=== PATIENT | female | born 1935 | race Hispanic/Latino ===

== ENCOUNTER 2018-06-07 18:09 | Emergency (ER) | payer OTHER ==
--- OUTSIDE RECORDS SUMMARY | 2018-06-07 18:10 | XMS REPORT ---
:1935 Author Organization eClinicalWorks Care Team Providers Name Role Phone Konstantin [facility] Provider Role Unavailable Allergies, Adverse Reactions, Alerts Substance Reaction Event Type Lisinopril/Hctz Info Not Available Drug Allergy Cozaar Info Not Available Drug Allergy Problems Problem Type Condition Code Onset Dates Condition Status Assessment Depression with anxiety F41.8 Active Assessment Hypertension I10 Active Assessment Hyperlipidemia E78.5 Active Assessment Gastro-esophageal reflux disease K21.9 Active without esophagitis Problem Hypertension I10 Active Problem Obesity E66.9 Active Problem Hyperlipidemia E78.5 Active Problem Gastro-esophageal reflux disease K21.9 Active without esophagitis Problem Hyperglycemia R73.9 Active Problem Depression with anxiety F41.8 Active Medications Medication Code System Code Instructions Start Date End Date Status Dosage Aspir-81 [facility] 50049712211 81 MG Orally Once Active 1 tablet a day Bystolic [facility] 05294696588 5 MG Orally Once Active 1 tablet a day Lipitor [facility] 30074343130 10 MG Orally Once Active 1 tablet a day Results No Known Results Summary Purpose eClinicalWorks Submission
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
[2018-06-07 20:05] VITALS: BP 164/75; TEMP 97.8; O2SAT 96
== END 2018-06-07 19:58 | disposition home or self-care (01) ==
LOC: ER 18:09
DX: M25.562 Pain in left knee (principal); I10 Essential (primary) hypertension; V43.52XA Car driver injured in collision with other type car in traffic accident, initial encounter
CPT/HCPCS: 70450; 72125; 99284

== ENCOUNTER 2018-07-18 18:49 | Emergency (ER) | payer OTHER ==
--- OUTSIDE RECORDS SUMMARY | 2018-07-18 18:51 | XMS REPORT ---
:1935 Author Organization eClinicalWorks Care Team Providers Name Role Phone Konstantin [facility] Provider Role Unavailable Allergies, Adverse Reactions, Alerts [...] Start Date End Date Status Dosage Aspir-[address] [facility] [id number] 81 MG Orally Once Active 1 tablet a day Bystolic [facility] 49728401542 5 MG Orally Once Active 1 tablet a day Lipitor [facility] 25314125371 10 MG Orally Once Active 1 tablet a day Results No Known Results Summary Purpose eClinicalWorks Submission
[2018-07-18] MEDS ORDERED: ONDANSETRON 4 MG/2 ML VIAL ONE (20:00)
[2018-07-18] MEDS ORDERED: MORPHINE 4 MG/ML SYR ONE (20:00)
[2018-07-18 20:14] LABS: Absolute Lymphocytes (CBC) 1.6 K/uL (0.7-4.9); Absolute Monocytes 0.8 K/uL (0.1-1.3); Absolute Neutrophil 11.1 K/uL (1.8-8.0); Basophils % 0.3 % (0-1.3); Eosinophils % 0.6 % (0-4.4); Lymphocytes % 11.7 % (15.3-44.8); MPV 10.2 fL (7.6-11.3); Monocytes % 5.8 % (3.3-12.3); RBC Red Blood Cell Count 4.81 M/uL (3.86-4.86)
[2018-07-18 20:29] LABS: Albumin 3.9 g/dL (3.4-5.0); Bilirubin Direct 0.1 mg/dL (0-0.2); Bilirubin Total 0.3 mg/dL (0.2-1.0); Protein, Total 7.7 g/dL (6.4-8.2)
[2018-07-18 20:33] LABS: Urine Bacteria <20 /HPF (<20); Urine Culture Reflex Order REFLEXED; Urine RBC <5 /HPF (NONE SEEN)
[2018-07-18 20:47] LABS: Urine Blood 3+ (NEG); Urine Glucose NEGATIVE (NEG); Urine Protein 1+ (NEG); Urine Specific Gravity 1.025 (1.005-1.030)
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
--- NOTE | 2018-07-18 21:34 | ER ---
Nurse's Notes [facility] Name: Tiffany Zambrano Age: 83 yrs Sex: Female : 1935 Arrival Date: 07/18/2018 Time: 18:50 Bed 15 Private MD: Richar Pryor Diagnosis: Right ureteral calculous with right hydroneprosis Presentation: 07/18 19:15 Presenting complaint: Patient states: right lower abd pain since 1600. Transition of ak1 care: patient was not received from another setting of care. Onset of symptoms was July 18, 2018. Risk Assessment: Do you want to hurt yourself or someone else? Patient reports no desire to harm self or others. Initial Sepsis Screen: Does the patient meet any 2 criteria? No. Patient's initial sepsis screen is negative. Does the patient have a suspected source of infection? No. Patient's initial sepsis screen is negative. Care prior to arrival: None. 19:15 Method Of Arrival: Ambulatory ak1 19:15 Acuity: YESENIA 3 ak1 Triage Assessment: 19:16 General: Appears uncomfortable, Behavior is crying. ak1 Historical: - Allergies: 19:16 No Known Allergies; ak1 - Home Meds: 19:16 Unable to obtain [Active]; ak1 - PMHx: 19:16 Hyperlipidemia; Hypertension; ak1 - PSHx: 19:16 ; ak1 - Immunization history:: Adult Immunizations unknown. - Social history:: Smoking status: unknown. - Ebola Screening: : No symptoms or risks identified at this time. Screenin:00 Abuse screen: Denies threats or abuse. Denies injuries from another. Nutritional rr5 screening: No deficits noted. Tuberculosis screening: No symptoms or risk factors identified. Fall Risk IV access (20 points). Total Marte Fall Scale indicates No Risk (0-24 pts). Assessment: 19:30 General: Appears in no apparent distress. uncomfortable, Behavior is calm, cooperative, rr5 appropriate for age. Pain: Complains of pain in right lower quadrant Pain does not radiate. Pain currently is 10 out of 10 on a pain scale. Quality of pain is described as aching, Pain began gradually, Is intermittent. 19:30 Neuro: Level of Consciousness is awake, alert, obeys commands, Oriented to person, rr5 place, time, situation. Cardiovascular: Capillary refill < 3 seconds Patient's skin is warm and dry. Respiratory: Airway is patent Respiratory effort is even, unlabored, Respiratory pattern is regular, symmetrical. GI: Abdomen is round Reports lower abdominal pain, nausea, vomiting. : Reports urinary frequency. EENT: No signs and/or symptoms were reported regarding the EENT system. Derm: Skin is intact, Skin temperature is warm. Musculoskeletal: No signs and/or symptoms reported regarding the musculoskeletal system. 20:30 Reassessment: Patient appears in no apparent distress at this time. Patient and/or rr5 family updated on plan of care and expected duration. Pain level reassessed. Patient denies pain at this time. Patient states feeling better. Patient states symptoms have improved. 21:30 Reassessment: Patient appears in no apparent distress at this time. Patient and/or rr5 family updated on plan of care and expected duration. Pain level reassessed. Patient states feeling better. Patient states symptoms have improved. 22:28 Reassessment: Patient appears in no apparent distress at this time. Patient and/or rr5 family updated on plan of care and expected duration. Pain level reassessed. no complaints of pain. 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 Patient states symptoms have improved. 23:00 Reassessment: Patient appears in no apparent distress at this time. Patient and/or rr5 family updated on plan of care and expected duration. Pain level reassessed. discharge instruction and prescription explained without complaints made. Patient states feeling better. Patient states symptoms have improved. Vital Signs: 19:13 BP 167 / 86; Pulse 73; Resp 20; Temp 98.8; Pulse Ox 96% on R/A; Weight 81.65 kg (R); ak1 Height 5 ft. 2 in. (157.48 cm) (R); Pain 9/10; 20:30 BP 153 / 63; Pulse 70; Resp 19; Pulse Ox 99% on R/A; rr5 21:30 BP 160 / 70; Pulse 71; Resp 18; Pulse Ox 99% ; rr5 22:27 BP 162 / 73; Pulse 79; Resp 18; Pulse Ox 99% ; rr5 22:54 BP 151 / 62; Pulse 66; Resp 17; Pulse Ox 99% ; rr5 19:13 Body Mass Index 32.92 (81.65 kg, 157.48 cm) ak1 ED Course: 18:50 Patient arrived in ED. rg4 18:51 Herbert Pryor MD is Private Physician. rg4 18:51 Richar Pryor DO is Private Physician. rg4 19:13 Arm band placed on Patient placed in an exam room, on a stretcher, Patient notified of ak1 wait time. 19:16 Triage completed. ak1 19:22 Ethan Mendez, LETY is PHCP. pm1 19:23 Pepe Schulz MD is Attending Physician. pm1 19:39 Brent Gould RN is Primary Nurse. rr5 19:40 Inserted saline lock: 20 gauge in right forearm, using aseptic technique. Blood rr5 collected. 19:42 Radiology exam delayed due to lab results not completed at this time. (BUN/Creatinine). vm2 20:00 Patient has correct armband on for positive identification. Placed in gown. Bed in low rr5 position. Call light in reach. Side rails up X2. 20:00 Pulse ox on. NIBP on. rr5 20:13 Radiology exam delayed due to lab results not completed at this time. (BUN/Creatinine). vm2 20:22 Radiology exam delayed due to lab results not completed at this time. (BUN/Creatinine). vm2 20:[address] vm2 20:51 CT completed. Patient tolerated procedure well. Patient moved back from CT. vm2 20:56 CT Abd/Pelvis - W/Contrast: IV contrast only In Process Unspecified. EDMS 21:32 Golden Wright MD is Referral Physician. pm1 23:02 No provider procedures requiring assistance completed. IV discontinued, intact, rr5 bleeding controlled, Pressure dressing applied. Administered Medications: 19:50 Drug: Zofran 4 mg Route: IVP; Site: right forearm; rr5 22:29 Follow up: Response: No adverse reaction rr5 19:55 Drug: morphine 2 mg Route: IVP; Site: right forearm; rr5 22:29 Follow up: Response: No adverse reaction rr5 21:40 Drug: NS 0.9% 1000 ml Route: IV; Rate: 1000 ml; Site: right forearm; rr5 22:40 Follow up: Response: No adverse reaction; IV Status: Completed infusion; IV Intake: rr5 1000ml 23:01 Follow up: Response: No adverse reaction rr5 21:42 Drug: Flomax 0.4 mg Route: PO; rr5 22:29 Follow up: Response: No adverse reaction rr5 21:51 Drug: Rocephin 1 grams Route: IV; Rate: calculated rate; Site: right forearm; rr5 22:29 Follow up: Response: No adverse reaction; IV Status: Completed infusion rr5 Intake: 22:40 IV: 1000ml; Total: 1000ml. rr5 Outcome: 21:33 Discharge ordered by MD. pm1 23:00 Discharged to home ambulatory, with family. rr5 23:00 Condition: stable 23:00 Discharge instructions given to patient, family, Instructed on discharge instructions, follow up and referral plans. no driving heavy equipment, Demonstrated understanding of instructions, follow-up care, medications, Prescriptions given X 3. 23:03 Patient left the ED. rr5 Signatures: Dispatcher [employer] EDEv Hi, RN RN ak1 Ethan Mendez, LETY [employer]IT[employer] PILOT pm1 Ryanne Denton4 Lashon Ervin 2 Brent Gould RN RN rr5
--- NOTE | 2018-07-18 21:34 | EDPHYS ---
Physician Documentation [facility] Name: Tiffany Zambrano Age: 83 yrs Sex: Female : 1935 Arrival Date: 07/18/2018 Time: 18:50 Bed 15 Private MD: Richar Pryor ED Physician Pepe Schulz HPI: 07/18 20:00 This 83 yrs old Female presents to ER via Ambulatory with complaints of Flank pm1 Pain. 20:00 The patient complains of pain in the right low back. Location: right lower quadrant. pm1 Onset: The symptoms/episode began/occurred today, at 16:00. Modifying factors: The symptoms are alleviated by nothing. the symptoms are aggravated by nothing. Associated signs and symptoms: Pertinent positives: urinary frequency, Pertinent negatives: fever, nausea, vomiting. Severity of pain: in the emergency department the pain is actually worse. The patient has not experienced similar symptoms in the past. The patient has not recently seen a physician. Historical: - Allergies: 19:16 No Known Allergies; ak1 - Home Meds: 19:16 Unable to obtain [Active]; ak1 - PMHx: 19:16 Hyperlipidemia; Hypertension; ak1 - PSHx: 19:16 ; ak1 - Immunization history:: Adult Immunizations unknown. - Social history:: Smoking status: unknown. - Ebola Screening: : No symptoms or risks identified at this time. ROS: 20:00 Constitutional: Negative for fever, chills, and weight loss, Eyes: Negative for injury, pm1 pain, redness, and discharge, ENT: Negative for injury, pain, and discharge, Neck: Negative for injury, pain, and swelling, Cardiovascular: Negative for chest pain, palpitations, and edema, Respiratory: Negative for shortness of breath, cough, wheezing, and pleuritic chest pain, Abdomen/GI: Negative for abdominal pain, nausea, vomiting, diarrhea, and constipation. 20:00 : Negative for injury, bleeding, discharge, and swelling, MS/Extremity: Negative for injury and deformity, Skin: Negative for injury, rash, and discoloration, Neuro: Negative for headache, weakness, numbness, tingling, and seizure. 20:00 Back: Positive for flank pain, on the right. Exam: 20:00 Constitutional: This is a well developed, well nourished patient who is awake, alert, pm1 and in no acute distress. Head/Face: Normocephalic, atraumatic. Eyes: Pupils equal round and reactive to light, extra-ocular motions intact. Lids and lashes normal. Conjunctiva and sclera are non-icteric and not injected. Cornea within normal limits. Periorbital areas with no swelling, redness, or edema. ENT: Nares patent. No nasal discharge, no septal abnormalities noted. Tympanic membranes are normal and external auditory canals are clear. Oropharynx with no redness, swelling, or masses, exudates, or evidence of obstruction, uvula midline. Mucous membranes moist. Neck: Trachea midline, no thyromegaly or masses palpated, and no cervical lymphadenopathy. Supple, full range of motion without nuchal rigidity, or vertebral point tenderness. No Meningismus. Chest/axilla: Normal chest wall appearance and motion. Nontender with no deformity. No lesions are appreciated. Cardiovascular: Regular rate and rhythm with a normal S1 and S2. No gallops, murmurs, or rubs. Normal PMI, no JVD. No pulse deficits. Respiratory: Lungs have equal breath sounds bilaterally, clear to auscultation and percussion. No rales, rhonchi or wheezes noted. No increased work of breathing, no retractions or nasal flaring. Abdomen/GI: Soft, non-tender, with normal bowel sounds. No distension or tympany. No guarding or rebound. No evidence of tenderness throughout. 20:00 Skin: Warm, dry with normal turgor. Normal color with no rashes, no lesions, and no evidence of cellulitis. MS/ Extremity: Pulses equal, no cyanosis. Neurovascular intact. Full, normal range of motion. 20:00 Back: normal spinal alignment noted, CVA tenderness, is noted on the right, vertebral tenderness, is not appreciated. 20:00 Neuro: Orientation: is normal, Motor: is normal, moves all fours. Vital Signs: 19:13 BP 167 / 86; Pulse 73; Resp 20; Temp 98.8; Pulse Ox 96% on R/A; Weight 81.65 kg (R); ak1 Height 5 ft. 2 in. (157.48 cm) (R); Pain 9/10; 20:30 BP 153 / 63; Pulse 70; Resp 19; Pulse Ox 99% on R/A; rr5 21:30 BP 160 / 70; Pulse 71; Resp 18; Pulse Ox 99% ; rr5 22:27 BP 162 / 73; Pulse 79; Resp 18; Pulse Ox 99% ; rr5 22:54 BP 151 / 62; Pulse 66; Resp 17; Pulse Ox 99% ; rr5 19:13 Body Mass Index 32.92 (81.65 kg, 157.48 cm) ak1 MDM: 19:24 Patient medically screened. [facility] 21:27 Data reviewed: vital signs. Data interpreted: Pulse oximetry: on room air is 99 %. pm1 Interpretation: normal. Counseling: I had a detailed discussion with the patient and/or guardian regarding: the historical points, exam findings, and any diagnostic results supporting the discharge/admit diagnosis, lab results, radiology results, the need for outpatient follow up, for definitive care, a urologist, to return to the emergency department if symptoms worsen or persist or if there are any questions or concerns that arise at home. 07/18 19:36 Order name: Basic Metabolic Panel; Complete Time: 20:46 pm1 07/18 19:36 Order name: CBC with Diff; Complete Time: 20:46 pm1 07/18 19:36 Order name: Creatinine for Radiology; Complete Time: 20:46 pm1 07/18 19:36 Order name: Hepatic Function; Complete Time: 20:46 pm1 07/18 19:36 Order name: Lipase; Complete Time: 20:46 pm1 07/18 19:36 Order name: Urine Microscopic Only; Complete Time: 20:46 pm1 07/18 19:39 Order name: CT Abd/Pelvis - W/Contrast: IV contrast only; Complete Time: 21:14 pm1 07/18 20:24 Order name: Urine Dipstick--Ancillary (enter results); Complete Time: 21:14 ar5 07/18 20:34 Order name: Urine Culture EDME 07/18 19:36 Order name: IV Saline Lock; Complete Time: 19:41 pm1 07/18 19:36 Order name: Labs collected and sent; Complete Time: 19:41 pm1 07/18 19:36 Order name: Urine Dipstick-Ancillary (obtain specimen); Complete Time: 19:41 pm1 Administered Medications: 19:50 Drug: Zofran 4 mg Route: IVP; Site: right forearm; rr5 22:29 Follow up: Response: No adverse reaction rr5 19:55 Drug: morphine 2 mg Route: IVP; Site: right forearm; rr5 22:29 Follow up: Response: No adverse reaction rr5 21:40 Drug: NS 0.9% 1000 ml Route: IV; Rate: 1000 ml; Site: right forearm; rr5 22:40 Follow up: Response: No adverse reaction; IV Status: Completed infusion; IV Intake: rr5 1000ml 23:01 Follow up: Response: No adverse reaction rr5 21:42 Drug: Flomax 0.4 mg Route: PO; rr5 22:29 Follow up: Response: No adverse reaction rr5 21:51 Drug: Rocephin 1 grams Route: IV; Rate: calculated rate; Site: right forearm; rr5 22:29 Follow up: Response: No adverse reaction; IV Status: Completed infusion rr5 Disposition: 07/18/18 21:33 Discharged to Home. Impression: Right ureteral calculous with right hydroneprosis. - Condition is Stable. - Discharge Instructions: Kidney Stones, Dietary Guidelines to Help Prevent Kidney Stones. - Prescriptions for Tylenol- Codeine #3 300-30 mg Oral Tablet - take 1 tablet by ORAL route every 6 hours As needed; 20 tablet. Zofran 4 mg Oral Tablet - take 1 tablet by ORAL route every 8 hours As needed; 20 tablet. Bactrim DS 800- 160 mg Oral Tablet - take 1 tablet by ORAL route every 12 hours for 10 days; 20 tablet. - Medication Reconciliation Form, Thank You Letter, Antibiotic Education, Prescription Opioid Use form. - Follow up: Emergency Department; When: As needed; Reason: Worsening of condition. Follow up: Golden Wright MD; When: 2 - 3 days; Reason: Recheck today's complaints, Continuance of care, Re-evaluation by your physician. - Problem is new. - Symptoms have improved. Addendum: 07/24/2018 11:30 Co-signature as Attending Physician, Pepe Schulz MD I agree with the assessment and c braun plan of care. Signatures: Dispatcher [employer] Pepe Jaramillo MD MD cha Krenek, Amber, RN RN ak1 Ethan Mendez, SHROUD LINE TIER SHROUD LINE TIER pm1 Brent Gould RN RN rr5 Corrections: (The following items were deleted from the chart) 07/18 23:03 21:33 07/18/2018 21:33 Discharged to Home. Impression: Right ureteral calculous with rr5 right hydroneprosis. Condition is Stable. Forms are Medication Reconciliation Form, Thank You Letter, Antibiotic Education, Prescription Opioid Use. Follow up: Emergency Department; When: As needed; Reason: Worsening of condition. Follow up: Golden Wright; When: 2 - 3 days; Reason: Recheck today's complaints, Continuance of care, Re-evaluation by your physician. Problem is new. Symptoms have improved. pm1
[2018-07-18] MEDS ORDERED: NA CHLORIDE 0.9% 1,000 ML ONE (21:40)
[2018-07-18] MEDS ORDERED: TAMSULOSIN 0.4 MG SR CAP ONE (21:42)
[2018-07-18] MEDS ORDERED: CEFTRIAXONE/SWI 1gm 1 GM/10 ML SYR ONE (21:53)
[2018-07-18 23:32] VITALS: TEMP 98.8
[2018-07-18 23:34] VITALS: O2SAT 99
[2018-07-19 23:27] VITALS: BP 151/62
== END 2018-07-18 23:03 | disposition home or self-care (01) ==
LOC: ER 18:49
DX: N13.2 Hydronephrosis with renal and ureteral calculous obstruction (principal); I10 Essential (primary) hypertension
CPT/HCPCS: 36415; 74177; 80048; 80076; 83690; 85025; 87086; 87088; 96365; 96375; 99284; J0696; J2405; J7030; Q9967; 81003; 81015

== ENCOUNTER 2021-01-25 13:49 | Emergency (ER) | payer OTHER ==
--- OUTSIDE RECORDS SUMMARY | 2021-01-25 13:56 | XMS REPORT | Continuity of Care Document ---
:1935 Author Organization [facility] t Address [address] [place] [address] Care Team Providers Name Role Phone Unavailable Unavailable Unavailable Problems This patient has no known problems. Allergies, Adverse Reactions, Alerts Allergy Allergy Status Severity Reaction(s) Onset Inactive Treating Comm ents Source Name Type Date Date Clinician Lisinopr Adverse Active Info Not [facility] Available [facility] [place] Cozaar Adverse Active Info Not [facility] Reaction Available [facility] Medications Ordered Filled Start Stop Current Ordering Indication Dosage Frequency Signature Comments Components Source Medication Medication Date Date Medication? Clinician (SIG) Name Name Lipitor Lipitor Yes Richar [address] [facility] at [facility] bedtime [facility] ent [facility] Bystolic Bystolic Yes Richar [address] [facility] Procedures This patient has no known procedures. Encounters Start End Encounter Admission Attending Care Care Encounter Source Date/Time Date/Time Type Type Clinicians Facility Department ID 2020-09-03 2020-09-03 Outpatient [facility] [id number] [facility] 2020-03-09 2020-03-09 [facility] [id number] [facility] 14:52:00 14:52:00 [facility] ent [facility] 2020-03-05 2020-03-05 [facility] [id number] [facility] 13:00:00 13:00:00 [facility] 2020-03-05 2020-03-05 [facility] [id number] [facility] 13:00:00 13:00:00 [facility] 2019-12-17 2019-12-17 [facility] [id number] [facility] 09:24:00 09:24:00 [facility] 2019-07-25 2019-07-25 [facility] [id number] [facility] 09:15:00 09:15:00 [facility] 2019-04-24 2019-04-24 [facility] [id number] [facility] 13:15:00 13:15:00 [facility] 2018-10-23 2018-10-23 [facility] [id number] [facility] 13:00:00 13:00:00 [facility] 2018-04-24 2018-04-24 [facility] [id number] [facility] 13:30:00 13:30:00 [facility] Results This patient has no known results.
[2021-01-25 17:35] LABS: Absolute Lymphocytes (CBC) 2.2 K/uL (0.7-4.9); Basophils % 0.6 % (0-1.3); Hematocrit 43.4 % (36.0-45.0); Lymphocytes % 24.8 % (15.3-44.8); MPV 9.6 fL (7.6-11.3); RBC Red Blood Cell Count 4.66 M/uL (3.86-4.86)
[2021-01-25] MEDS ORDERED: NA CHLORIDE 0.9% 1,000 ML ONE (17:51)
[2021-01-25 18:01] LABS: ALT/SGPT 15 U/L (12-78); AST/SGOT 16 U/L (15-37); Albumin 3.6 g/dL (3.4-5.0); Alkaline Phosphatase 115 U/L (45-117); BUN Blood Urea Nitrogen 16 mg/dL (7-18); Bicarbonate 29 mmol/L (21-32); Bilirubin Total 0.4 mg/dL (0.2-1.0); Glucose Level 102 mg/dL (74-106); Potassium 4.8 mmol/L (3.5-5.1); Protein, Total 7.8 g/dL (6.4-8.2); Sodium Level 144 mmol/L (136-145); Troponin (Emerg Dept Use Only) < 0.02 ng/mL (0.0-0.045)
--- NOTE | 2021-01-25 18:14 | RAD REPORT ---
EXAM DESCRIPTION: CT - Soft Tissue Neck W/Contr CLINICAL HISTORY: PAIN COMPARISON: Head C Spine Mpr Wo Con dated 06/07/[address] scans are performed using dose optimization technique as appropriate and may includ e automated exposure control or mA/KV adjustment according to patient size. FINDINGS: Nasopharyngeal tissues are normal in appearance. Fossa Rosenmller are normal. Parapharyngeal fat triangles are symmetric. Tongue base structures are normal. Epiglottis and aryepiglottic folds are normal. Piriform sinuses are well aerated. The vocal cords are normal in appearance. Salivary glands are normal in appearance. Upper lung lopez are clear. Included intracranial contents are unremarkable. The left sternoclavicular joint demonstrate its thickening of the soft tissues suggesting inflammatio n. IMPRESSION: Mild to moderate soft tissue thickening involving the left sternoclavicular joint. This may indicate inflammation in this region.
--- NOTE | 2021-01-25 19:10 | RAD REPORT ---
EXAM DESCRIPTION: RAD - Chest Single View - 01/25/2021 6:33 pm CLINICAL HISTORY: COUGH Chest pain. COMPARISON: CHEST SINGLE VIEW dated 07/01/2013; CHEST SINGLE VIEW dated 06/24/2013; CHEST SINGLE VIEW dated 06/17/2013 FINDINGS: Portable technique limits examination quality. The lungs are grossly clear. The heart is upper limit of normal in size. No displaced fractures. IMPRESSION: No acute intrathoracic process suspected.
--- NOTE | 2021-01-25 19:33 | EDPHYS ---
Physician Documentation [facility] Name: Tiffany Zambrano Age: 85 yrs Sex: Female : 1935 Arrival Date: 01/25/2021 Time: 13:52 Bed 7 Private MD: [place]IT[place] Physician Pepe Schulz HPI: 01/25 17:00 This 85 yrs old Female presents to ER via Ambulatory with complaints of Lump tami On Neck. 17:00 This 85 yrs old Female presents to ER via Ambulatory with complaints of Lump tami On Neck. 17:00 The patient or guardian reports chest pain that is located primarily in the anterior tami chest wall, left. Onset: 3 day(s) ago. The pain does not radiate. Associated signs and symptoms: The patient has no apparent associated signs or symptoms. The chest pain is described as dull. Duration: The patient or guardian reports a single episode, that is still ongoing. Modifying factors: The symptoms are alleviated by remaining still, the symptoms are aggravated by palpation of area. Severity of pain: At its worst the pain was mild in the emergency department the pain is unchanged. The patient has not experienced similar symptoms in the past. Historical: - Allergies: 14:01 No Known Allergies; jl7 - PMHx: 14:01 Hyperlipidemia; Hypertension; jl7 - Immunization history:: Adult Immunizations up to date, Client reports receiving the 2nd dose of the Covid vaccine. - Social history:: Smoking status: Patient/guardian denies using tobacco. - Family history:: not pertinent. ROS: 17:00 Constitutional: Negative for fever, chills, and weight loss, Eyes: Negative for injury, tami pain, redness, and discharge, ENT: Negative for injury, pain, and discharge, Neck: Negative for injury, pain, and swelling, Cardiovascular: Negative for chest pain, palpitations, and edema, Respiratory: Negative for shortness of breath, cough, wheezing, and pleuritic chest pain, Abdomen/GI: Negative for abdominal pain, nausea, vomiting, diarrhea, and constipation, Back: Negative for injury and pain, : Negative for injury, bleeding, discharge, and swelling, MS/Extremity: Negative for injury and deformity, Skin: Negative for injury, rash, and discoloration, Neuro: Negative for headache, weakness, numbness, tingling, and seizure, Psych: Negative for depression, anxiety, suicide ideation, homicidal ideation, and hallucinations, Allergy/Immunology: Negative for hives, rash, and allergies, Endocrine: Negative for neck swelling, polydipsia, polyuria, polyphagia, and marked weight changes, Hematologic/Lymphatic: Negative for swollen nodes, abnormal bleeding, and unusual bruising. Exam: 17:00 Constitutional: This is a well developed, well nourished patient who is awake, alert, tami and in no acute distress. Head/Face: Normocephalic, atraumatic. Eyes: Pupils equal round and reactive to light, extra-ocular motions intact. Lids and lashes normal. Conjunctiva and sclera are non-icteric and not injected. Cornea within normal limits. Periorbital areas with no swelling, redness, or edema. ENT: Nares patent. No nasal discharge, no septal abnormalities noted. Tympanic membranes are normal and external auditory canals are clear. Oropharynx with no redness, swelling, or masses, exudates, or evidence of obstruction, uvula midline. Mucous membranes moist. Neck: Trachea midline, no thyromegaly or masses palpated, and no cervical lymphadenopathy. Supple, full range of motion without nuchal rigidity, or vertebral point tenderness. No Meningismus. Cardiovascular: Regular rate and rhythm with a normal S1 and S2. No gallops, murmurs, or rubs. Normal PMI, no JVD. No pulse deficits. Respiratory: Lungs have equal breath sounds bilaterally, clear to auscultation and percussion. No rales, rhonchi or wheezes noted. No increased work of breathing, no retractions or nasal flaring. Abdomen/GI: Soft, non-tender, with normal bowel sounds. No distension or tympany. No guarding or rebound. No evidence of tenderness throughout. Back: No spinal tenderness. No costovertebral tenderness. Full range of motion. Female : Normal external genitalia. Skin: Warm, dry with normal turgor. Normal color with no rashes, no lesions, and no evidence of cellulitis. MS/ Extremity: Pulses equal, no cyanosis. Neurovascular intact. Full, normal range of motion. Neuro: Awake and alert, GCS 15, oriented to person, place, time, and situation. Cranial nerves II-XII grossly intact. Motor strength 5/5 in all extremities. Sensory grossly intact. Cerebellar exam normal. Normal gait. Psych: Awake, alert, with orientation to person, place and time. Behavior, mood, and affect are within normal limits. 17:00 Chest/axilla: Inspection: normal, Palpation: tenderness, that is mild, of the left clavicle, Axilla: are normal, Breasts: are normal, no acute changes, Lymph nodes: lymphadenopathy is not appreciated. 20:06 ECG was reviewed by the Attending Physician. [facility] Vital Signs: 14:00 BP 182 / 86; Pulse 77; Resp 17; Temp 97.9; Pulse Ox 97% on R/A; Weight 81.65 kg (R); jl7 Pain 0/10; 18:15 BP 174 / 85; Pulse 58; Resp 18; Pulse Ox 99% on R/A; ph 18:55 BP 188 / 86; Pulse 55; Resp 18; Pulse Ox 99% on R/A; ph 20:00 BP 191 / 88; Pulse 60; Resp 18; Pulse Ox 98% ; ea MDM: 15:51 Patient medically screened. tami 19:29 Differential diagnosis: abnormal EKG, chest wall pain, costochondritis, stable angina. tami HEART Score: History: Slightly Suspicious (0), ECG: Normal (0), Age: > or = 65 years (2), Risk Factors: > or = 3 Risk factors for atherosclerotic disease (2), [Hypercholesterolemia] [Hypertension] [+ Family HX] [Obesity] Troponin: < or = 1 x Normal Limit (0), Total Score = 4. The patient was not given aspirin in the Emergency Department. Not indicated due to patient's past medical history. The patient's deep vein thrombosis risk score was calculated as follows: Total Score: 0. This patient was found to be at low risk for a deep vein thrombosis by using the Well's assessment criteria. The patient's pulmonary embolism risk score was calculated as follows: Total Score: 0-2 points. This patient was found to be at low risk for a pulmonary embolism by using the Well's assessment criteria. TULIO Risk Score: TOTAL SCORE = 0. Data reviewed: vital signs, nurses notes, lab test result(s), EKG, radiologic studies, CT scan, plain films. Data interpreted: radiation monitor: rate is 55 beats/min, rhythm is regular, Pulse oximetry: on room air is 99 %. Test interpretation: by ED physician or midlevel provider: ECG, plain radiologic studies. Counseling: I had a detailed discussion with the patient and/or guardian regarding: the historical points, exam findings, and any diagnostic results supporting the discharge/admit diagnosis, lab results, radiology results, the need for outpatient follow up, for definitive care, a family practitioner, a orthopedic surgeon. 01/25 16:55 Order name: CBC with Diff; Complete Time: 19:28 [facility] 01/25 16:55 Order name: Comprehensive Metabolic Panel; Complete Time: 19:28 [facility] 01/25 16:55 Order name: Chest Single View XRAY; Complete Time: 19:28 [facility] 01/25 16:55 Order name: CT Soft Tissue Neck W/contr: please go to nipple line; Complete Time: 19:28 [facility] 01/25 16:55 Order name: TSH; Complete Time: 19:28 [facility] 01/25 16:55 Order name: Troponin (emerg Dept Use Only); Complete Time: 19:28 [facility] 01/25 16:55 Order name: EKG; Complete Time: 16:55 [facility] 01/25 16:55 Order name: EKG - Nurse/Tech; Complete Time: 20:11 [facility] 01/25 17:08 Order name: Ice pack; Complete Time: 18:02 [facility] EC:06 Rate is 63 beats/min. Rhythm is regular. QRS [place] is Normal. CO interval is normal. QRS tami interval is normal. QT interval is normal. No Q waves. T waves are Normal. No ST changes noted. Clinical impression: NSR w/ Non-specific ST/T Changes and No evidence of ischemia. Interpreted by me. Reviewed by me. Administered Medications: 17:46 Drug: NS 0.9% 500 ml Route: IV; Rate: bolus; Site: left forearm; kg 17:46 Drug: NS 0.9% 1000 ml Route: IV; Rate: 125 ml/hr; Site: left forearm; kg 20:11 Drug: Motrin (ibuprofen) 600 mg Route: PO; ea 20:13 Follow up: Response: Medication administered at discharge. ea 20:11 Drug: Bactrim (trimethoprim-sulfamethoxazole) (160 mg-800 mg (DS) 1 tablet Route: PO; ea 20:12 Follow up: Response: Medication administered at discharge. ea Disposition Summary: 01/25/21 19:33 Discharge Ordered Location: Home [facility] Problem: new tami Symptoms: have improved tami Condition: Stable tami Diagnosis - Chest pain, unspecified - left chest wall, inflamation of the left sternoclavicular tami joint(01/25/21 19:34) Followup: tami - With: Private Physician - When: 2 - 3 days - Reason: Recheck today's complaints, Continuance of care, Re-evaluation by your physician Followup: tami - With: - When: 2 - 3 days - Reason: Recheck today's complaints, Continuance of care, Re-evaluation by your physician Discharge Instructions: - Discharge Summary Sheet tami - Chest Wall Pain tami - RICE Therapy for Routine Care of Injuries tami - Chest Wall Pain, [id number] [facility] Forms: - Medication Reconciliation Form tami - Thank You Letter tami - Antibiotic Education tami - Prescription Opioid Use [facility] Prescriptions: - Motrin IB 200 mg Oral Tablet - take 2 tablet by ORAL route every 6 hours As needed as needed with food; 20 tami tablet; Refills: 0, Product Selection Permitted - Bactrim DS 800-160 mg Oral Tablet - take 1 tablet by ORAL route every 12 hours for 10 days; 20 tablet; Refills: 0, tami Product Selection Permitted Signatures: Dispatcher [employer] Pepe Jaramillo MD MD cha Leal, Jahala RN RN jl7 Paige Villalba RN RN ea Graham, Kristen, RN RN kg Corrections: (The following items were deleted from the chart) 19:34 19:33 Chest pain, unspecified - left chest wall tami garrett
--- NOTE | 2021-01-25 19:33 | ER ---
Nurse's Notes [facility] Name: Tiffany Zambrano Age: 85 yrs Sex: Female : 1935 Arrival Date: 01/25/2021 Time: 13:52 Bed 7 Private MD: Diagnosis: Chest pain, unspecified-left chest wall, inflamation of the left sternoclavicular joint Presentation: 01/25 14:00 Chief complaint: Patient states: Woke this morning with swelling to left clavicle area, jl7 denies trauma, reports pain with palpation. Coronavirus screen: Client denies travel out of the [place] in the last 14 days. At this time, the client does not indicate any symptoms associated with coronavirus-19. Ebola Screen: No symptoms or risks identified at this time. Initial Sepsis Screen: Does the patient meet any 2 criteria? No. Patient's initial sepsis screen is negative. Does the patient have a suspected source of infection? No. Patient's initial sepsis screen is negative. Risk Assessment: Do you want to hurt yourself or someone else? Patient reports no desire to harm self or others. Onset of symptoms. 14:00 Method Of Arrival: Ambulatory jl7 14:00 Acuity: YESENIA 4 jl7 16:52 Acuity: YESENIA 3 iw Historical: - Allergies: 14:01 No Known Allergies; jl7 - PMHx: 14:01 Hyperlipidemia; Hypertension; jl7 - Immunization history:: Adult Immunizations up to date, Client reports receiving the 2nd dose of the Covid vaccine. - Social history:: Smoking status: Patient/guardian denies using tobacco. - Family history:: not pertinent. Screenin:51 Abuse screen: Denies threats or abuse. Denies injuries from another. Nutritional ph screening: No deficits noted. Tuberculosis screening: No symptoms or risk factors identified. Fall Risk None identified. Assessment: 16:30 General: Appears in no apparent distress. comfortable, well groomed, Behavior is calm, ph cooperative, appropriate for age, Denies fever, feeling ill. Pain: Complains of pain in left clavicle. Neuro: Level of Consciousness is awake, alert, obeys commands, Oriented to person, place, time, situation. Cardiovascular: Denies chest pain, lightheadedness, nausea, shortness of breath, Capillary refill < 3 seconds in bilateral fingers Patient's skin is warm and dry. Respiratory: Airway is patent Respiratory effort is even, unlabored. GI: No signs and/or symptoms were reported involving the gastrointestinal system. Derm: Skin is intact, is healthy with good turgor, Skin is pink, warm \T\ dry. Musculoskeletal: Circulation, motion, and sensation intact. Range of motion: intact in all extremities. 18:15 Reassessment: Patient appears in no apparent distress at this time. Patient and/or ph family updated on plan of care and expected duration. Pain level reassessed. Patient is alert, oriented x 3, equal unlabored respirations, skin warm/dry/pink. 18:55 Reassessment: Patient appears in no apparent distress at this time. Patient and/or ph family updated on plan of care and expected duration. Pain level reassessed. Patient is alert, oriented x 3, equal unlabored respirations, skin warm/dry/pink. 20:12 Reassessment: Patient and/or family updated on plan of care and expected duration. Pain ea level reassessed. Patient is alert, oriented x 3, equal unlabored respirations, skin warm/dry/pink. Discharge instruction given to patient verbalized the understanding of instruction. Vital Signs: 14:00 BP 182 / 86; Pulse 77; Resp 17; Temp 97.9; Pulse Ox 97% on R/A; Weight 81.65 kg (R); jl7 Pain 0/10; 18:15 BP 174 / 85; Pulse 58; Resp 18; Pulse Ox 99% on R/A; ph 18:55 BP 188 / 86; Pulse 55; Resp 18; Pulse Ox 99% on R/A; ph 20:00 BP 191 / 88; Pulse 60; Resp 18; Pulse Ox 98% ; ea ED Course: 13:52 Patient arrived in ED. rg4 14:01 Triage completed. jl7 14:01 Arm band placed on right wrist. jl7 14:01 Patient placed in waiting room, Patient notified of wait time. jl7 15:51 Prisca Belle, INDERJIT is Primary Nurse. ph 15:51 Pepe Schulz MD is Attending Physician. [facility] 15:52 Patient has correct armband on for positive identification. Bed in low position. Call ph light in reach. Side rails up X 1. Pulse ox on. NIBP on. Door closed. Noise minimized. 16:30 Inserted saline lock: 22 gauge in left forearm, using aseptic technique. kg 17:31 CT Soft Tissue Neck W/contr: please go to nipple line In Process Unspecified. EDMS 18:33 Chest Single View XRAY In Process Unspecified. EDMS 19:32 Keron Hinkle MD is Referral Physician. tami 20:11 No provider procedures requiring assistance completed. IV discontinued, intact, ea bleeding controlled, No redness/swelling at site. Pressure dressing applied. Administered Medications: 17:46 Drug: NS 0.9% 500 ml Route: IV; Rate: bolus; Site: left forearm; kg 17:46 Drug: NS 0.9% 1000 ml Route: IV; Rate: 125 ml/hr; Site: left forearm; kg 20:11 Drug: Motrin (ibuprofen) 600 mg Route: PO; ea 20:13 Follow up: Response: Medication administered at discharge. ea 20:11 Drug: Bactrim (trimethoprim-sulfamethoxazole) (160 mg-800 mg (DS) 1 tablet Route: PO; ea 20:12 Follow up: Response: Medication administered at discharge. ea Outcome: 19:33 Discharge ordered by . tami 20:11 Discharged to home ambulatory, with family. ea 20:11 Condition: stable 20:11 Discharge instructions given to patient, Instructed on discharge instructions, follow up and referral plans. medication usage, Demonstrated understanding of instructions, follow-up care, medications, Prescriptions given X 2. 20:13 Patient left the ED. ea Signatures: Dispatcher [employer] Pepe Jaramillo MD MD cha Williams, Irene, RN Prisca Edwards RN Ryanne Simon ph rg4 Nikky Thomas RN RN jl7 Paige Villalba RN RN ea Graham, Kristen RN RN kg
[2021-01-25] MEDS ORDERED: SMZ./TMP. 800/160 MG TABLET ONE (20:17)
[2021-01-25] MEDS ORDERED: IBUPROFEN 400 MG TAB ONE (20:18)
[2021-01-25] MEDS ORDERED: IBUPROFEN 200 MG TAB PO ONE (20:18)
[2021-01-25 20:23] VITALS: TEMP 97.9
[2021-01-25 20:27] VITALS: BP 191/88; O2SAT 98
--- NOTE | 2021-01-26 16:10 | EKG ---
Test Date: 2021-01-25 Test Time: 20:06:01 Welt Rander: SERINA MEASUREMENT RESULTS: Intervals: Rate: 63 AK: 158 QRSD: 128 QT: 444 QTc: 454 [place]: P: 33 AK: 158 QRS: -50 T: -35 INTERPRETIVE STATEMENTS: Normal sinus rhythm Right bundle branch block Left anterior fascicular block Bifascicular block Minimal voltage criteria for LVH, may be normal variant T wave abnormality, consider lateral ischemia Abnormal ECG Compared to ECG 11/21/2014 15:08:05 Right bundle-branch block now present Left anterior fascicular block now present Bifascicular block now present Possible ischemia now present T-wave abnormality still present Electronically Signed On 01-26-21 16:08:33 CDT by Keron Hinkle
== END 2021-01-25 20:13 | disposition home or self-care (01) ==
LOC: ER 13:49
DX: R07.89 Other chest pain (principal); M13.88 Other specified arthritis, other site; I10 Essential (primary) hypertension
CPT/HCPCS: 93005; 85025; 36415; 82565; 84443; 84484; 80053; 70491; 71045; 99284; Q9967; J7030

== ENCOUNTER 2021-04-06 13:38 | Observation (INO) | payer OTHER ==
--- OUTSIDE RECORDS SUMMARY | 2021-04-06 13:44 | XMS REPORT | Continuity of Care Document ---
:1935 Author Organization [facility] t Address [address] [place] [address] Care Team Providers Name Role Phone Unavailable Unavailable Unavailable Problems This patient has no known problems. Allergies, Adverse Reactions, Alerts Allergy Allergy Status Severity Reaction(s) Onset Inactive Treating Comm ents Source Name Type Date Date Clinician Lisinopr Adverse Active Info Not [facility] Reaction Available [place] [facility] Cozaar Adverse Active Info Not [facility] Reaction Available [facility] Medications Ordered Filled Start Stop Current Ordering Indication Dosage Frequency Signature Comments Components Source Medication Medication Date Date Medication? Clinician (SIG) Name Name Lipitor Lipitor Yes Richar [address] [facility] bed[facility] Bystolic Bystolic Yes Richar [address] [facility] Procedures This patient has no known procedures. Encounters Start End Encounter Admission Attending Care Care Encounter Source Date/Time Date/Time Type Type Clinicians Facility Department ID 2021-03-08 2021-03-08 Outpatient [facility] [id number] 2021-03-08 2021-03-08 [facility] [id number] [facility] 2021-02-09 2021-02-09 Outpatient [facility] [id number] [facility] 2021-02-05 2021-02-05 Out[facility] [id number] [facility] 2020-09-03 2020-09-03 Out[facility] [id number] [facility] 2020-03-09 2020-03-09 [facility] [id number] [facility] 14:[facility] 14:52:00 [facility] [employer] [address] [facility] 2020-03-05 2020-03-05 [facility] [id number] 13:00:00 13:00:00 [facility] [employer] [facility] - [address] [facility] Out[facility] Clinics 2020-03-05 2020-03-05 [facility] [id number] 13[facility]00:00 13:00:00 t [employer] [address] [facility] 2019-12-17 2019-12-17 [facility] [id number] [facility] 09:24:00 09:24:00 t [employer] [address] [facility] 2019-07-25 2019-07-25 [facility] [id number] 09[facility]15:00 09:15:00 t [employer] [address] [facility] Outpat[facility] Clinics 2019-04-24 2019-04-24 [facility] [id number] 13:15:00 13:15:00 t [employer] [address] [facility] Medicine Outpat[facility] Clinics 2018-10-23 2018-10-23 [facility] [id number] 13:00:00 13:00:00 t [employer] [address] - [address] [facility] Outpat[facility] Clinics 2018-04-24 2018-04-24 [facility] [id number] 13:30:00 13:30:00 t [employer] [facility] Medicine Outpati ent Clinics Results This patient has no known results.
[2021-04-06 14:40] LABS: Basophils % 0.5 % (0-1.3); Hematocrit 44.3 % (36.0-45.0); Lymphocytes % 23.3 % (15.3-44.8); MPV 9.3 fL (7.6-11.3); RBC Red Blood Cell Count 4.78 M/uL (3.86-4.86)
[2021-04-06 14:46] LABS: Protime INR 0.97
[2021-04-06] MEDS ORDERED: NA CHLORIDE 0.9% 1,000 ML ONE (15:07)
[2021-04-06 15:17] LABS: BUN Blood Urea Nitrogen 18 mg/dL (7-18); Bicarbonate 25 mmol/L (21-32); Glucose Level 110 mg/dL (74-106); Potassium 4.9 mmol/L (3.5-5.1); Sodium Level 139 mmol/L (136-145)
[2021-04-06 15:18] LABS: ALT/SGPT 15 U/L (12-78); AST/SGOT 16 U/L (15-37); Albumin 3.8 g/dL (3.4-5.0); Alkaline Phosphatase 107 U/L (45-117); Bilirubin Direct < 0.1 mg/dL (0-0.2); Bilirubin Total 0.4 mg/dL (0.2-1.0); Magnesium 2.3 mg/dL (1.8-2.4); NT PRO-BNP 142 pg/mL (<450); Protein, Total 7.4 g/dL (6.4-8.2); Troponin (Emerg Dept Use Only) < 0.02 ng/mL (0.0-0.045)
--- NOTE | 2021-04-06 15:51 | RAD REPORT ---
EXAM DESCRIPTION: RAD - Chest Single View - 04/06/2021 3:18 pm CLINICAL HISTORY: dizziness, nausea COMPARISON: Chest Single View dated 01/25/2021; CHEST SINGLE VIEW dated 07/01/2013; CHEST SINGLE VIEW d ated 06/24/2013; CHEST SINGLE VIEW dated 06/17/2013 FINDINGS: Lines: None. Lungs: No evidence of edema or pneumonia. Pleural: No significant pleural effusions or pneumothorax. Cardiac: The heart size is within normal limits. Bones: No acute fractures. Other: IMPRESSION: No acute cardiopulmonary disease.
[2021-04-06] MEDS ORDERED: MECLIZINE HCL 12.5 MG TAB ONE (16:27)
--- NOTE | 2021-04-06 16:28 | RAD REPORT ---
EXAM DESCRIPTION: CT - Head Brain Wo Cont - 04/06/2021 4:21 pm CLINICAL HISTORY: DIZZINESS COMPARISON: No comparisons TECHNIQUE: All CT scans are performed using dose optimization technique as appropriate and may inclu de automated exposure control or mA/KV adjustment according to patient size. FINDINGS: No intracranial hemorrhage, hydrocephalus or extra-axial fluid collection.No areas of brai n edema or evidence of midline shift. Cerebral atrophy. Mild chronic small vessel ischemic changes . The paranasal sinuses and mastoids are clear. The calvarium is intact. IMPRESSION: No acute intracranial abnormality.
[2021-04-06] MEDS ORDERED: ONDANSETRON 4 MG/2 ML VIAL ONE (16:38)
--- NOTE | 2021-04-06 17:33 | ER ---
Nurse's Notes [facility] Name: Tiffany Zambrano Age: 85 yrs Sex: Female : 1935 Arrival Date: 04/06/2021 Time: 13:43 Bed 26 Private MD: Diagnosis: Chest pain, unspecified;Essential (primary) hypertension;Dizziness and giddiness Presentation: 04/06 13:44 Chief complaint: EMS states: toned out for nausea, dizziness and weakness X 2 days. ld1 Coronavirus screen: At this time, the client does not indicate any symptoms associated with coronavirus-19. Ebola Screen: No symptoms or risks identified at this time. Initial Sepsis Screen: Does the patient meet any 2 criteria? No. Patient's initial sepsis screen is negative. Does the patient have a suspected source of infection? No. Patient's initial sepsis screen is negative. Risk Assessment: Do you want to hurt yourself or someone else? Patient reports no desire to harm self or others. Onset of symptoms was April 06, 2021. 13:44 Method Of Arrival: EMS: [facility] ld1 13:44 Acuity: YESENIA 3 ld1 20:57 Note Report telephoned to Yasmani Alicia RN \T\ transported via w/c to # 231; NADN; lh3 [id number] present. Triage Assessment: 13:46 General: Appears in no apparent distress. comfortable, Behavior is cooperative, ld1 appropriate for age, anxious. Pain: Denies pain. EENT: No signs and/or symptoms were reported regarding the EENT system. Neuro: Level of Consciousness is awake, alert, obeys commands, Oriented to person, place, time, situation, Reports dizziness, weakness Denies. Cardiovascular: Capillary refill < 3 seconds Patient's skin is warm and dry. Respiratory: Airway is patent Respiratory effort is even, unlabored, Respiratory pattern is regular, symmetrical. GI: Abdomen is flat, non-distended, Reports nausea. : No signs and/or symptoms were reported regarding the genitourinary system. Derm: No signs and/or symptoms reported regarding the dermatologic system. Musculoskeletal: No signs and/or symptoms reported regarding the musculoskeletal system. Historical: - Allergies: 13:46 No Known Allergies; ld1 - Home Meds: 13:46 atorvastatin 10 mg oral tab 1 tab once daily [Active]; Bystolic 5 mg oral tab 1 tab ld1 once daily [Active]; - PMHx: 13:46 Hyperlipidemia; Hypertension; ld1 - Immunization history:: Adult Immunizations up to date, . - Social history:: Smoking status: Patient denies any tobacco usage or history of. - Family history:: not pertinent. Screenin:50 Abuse screen: Denies threats or abuse. Denies injuries from another. Nutritional ld1 screening: No deficits noted. Tuberculosis screening: No symptoms or risk factors identified. Fall Risk None identified. Assessment: 13:50 Reassessment: See triage assessment. GI: Abdomen is flat, non-distended, Reports nausea.ld1 16:00 Reassessment: Patient appears in no apparent distress at this time. No changes from ld1 previously documented assessment. Patient and/or family updated on plan of care and expected duration. Pain level reassessed. Patient is alert, oriented x 3, equal unlabored respirations, skin warm/dry/pink. Vital Signs: 13:44 BP 155 / 64; Pulse 70; Resp 18; Temp 98.9(O); Pulse Ox 95% on R/A; Weight 88.45 kg; ld1 Height 5 ft. 3 in. (160.02 cm); Pain 0/10; 16:00 BP 166 / 70; Pulse 56; Resp 23; Pulse Ox 97% on R/A; ld1 19:01 BP 186 / 85; Pulse 59; Resp 20; Temp 98.5; Pulse Ox 98% on R/A; lh3 20:18 BP 185 / 67; Pulse 53; Resp 20; Pulse Ox 99% on R/A; lh3 20:40 BP 155 / 66; Pulse 54; Resp 20; Temp 98.5(O); Pulse Ox 98% on R/A; lh3 13:44 Body Mass Index 34.54 (88.45 kg, 160.02 cm) ld1 ED Course: 13:43 Patient arrived in ED. ld1 13:46 Triage completed. ld1 13:46 Arm band placed on right wrist. ld1 13:50 Patient has correct armband on for positive identification. Placed in gown. Bed in low ld1 position. Call light in reach. Side rails up X2. monitoring manager on. Pulse ox on. Sitter at bedside. Door closed. Noise minimized. Warm blanket given. 13:50 No provider procedures requiring assistance completed. Maintain EMS IV. Dressing ld1 intact. Good blood return noted. Site clean \T\ dry. Gauge \T\ site: 20G RH. 14:29 Pepe Schulz MD is Attending Physician. tami 14:40 Basic Metabolic Panel Sent. aj2 14:40 CBC with Diff Sent. aj2 14:40 LFT's Sent. aj2 14:40 Magnesium Sent. aj2 14:40 NT PRO-BNP Sent. aj2 14:40 PT-INR Sent. aj2 14:40 Troponin (emerg Dept Use Only) Sent. aj2 15:18 XRAY Chest (1 view) In Process Unspecified. EDMS 16:21 CT Head Brain wo Cont In Process Unspecified. EDMS 17:32 Arash Bolanos DO is Hospitalizing Provider. tami 17:49 Brent Burton MD is Hospitalizing Provider. la1 18:36 US Carotid Artery Bilateral In Process Unspecified. EDMS 19:45 Manisha Head RN is Primary Nurse. 3 20:59 Patient admitted, IV remains in place. intact. 3 21:12 Attending Physician role handed off by Pepe Schulz MD bb 21:12 Primary Nurse role handed off by Manisha Head RN bb Administered Medications: 14:46 Drug: NS 0.9% 1000 ml Route: IV; Rate: 125 ml/hr; Site: right hand; aj2 16:06 Drug: Meclizine 50 mg Route: PO; ld1 16:06 Follow up: Response: No adverse reaction ld1 17:37 Drug: Aspirin Chewable Tablet 324 mg Route: PO; ld1 17:38 Follow up: Response: No adverse reaction ld1 17:37 Drug: Pepcid (famotidine) 20 mg Route: IVP; Site: right hand; ld1 17:37 Follow up: Response: No adverse reaction ld1 Outcome: 17:32 Decision to Hospitalize by Provider. tami 20:58 Condition: stable lh3 20:58 Instructed on the need for admit. 20:59 Admitted to Med/surg accompanied by nurse, via wheelchair, room 231, Report called to [facility] Yasmani Alicia RN. 21:02 Patient left the ED. lh3 21:14 Patient left the ED. bb Signatures: Dispatcher [employer] EDPepe Reynolds MD MD cha Ballard, Brenda RN RN Roger Hitchcock, TRANSPORTATION OFFICER-C TRANSPORTATION OFFICER-Anum1 Lizbet Garcia RN RN ld1 Manisha Head RN RN lh3 Apoorva Sanchez2 Corrections: (The following items were deleted from the chart) 20:20 19:01 BP 186 / 85; Pulse 59bpm; Resp 22bpm; Pulse Ox 94% RA; Temp 98.5F; lh3 lh3
--- NOTE | 2021-04-06 17:33 | EDPHYS ---
Physician Documentation [facility] Name: Tiffany Zambrano Age: 85 yrs Sex: Female : 1935 Arrival Date: 04/06/2021 Time: 13:43 Bed 26 Private MD: ED Physician HPI: 04/06 17:28 This 85 yrs old Female presents to ER via EMS with complaints of General tami Weakness, Dizziness, Nausea. 17:28 The patient presents with dizziness, generalized weakness. Onset: The symptoms/episode tami began/occurred today. Context: occurred at home. Modifying factors: The symptoms are alleviated by nothing, the symptoms are aggravated by nothing. Associated signs and symptoms: The patient has no apparent associated signs or symptoms. Severity of symptoms: At their worst the symptoms were mild in the emergency department the symptoms are unchanged. Patient's baseline: Neuro: alert and fully oriented. The patient has not experienced similar symptoms in the past. Historical: - Allergies: 13:46 No Known Allergies; ld1 - Home Meds: 13:46 atorvastatin 10 mg oral tab 1 tab once daily [Active]; Bystolic 5 mg oral tab 1 tab ld1 once daily [Active]; - PMHx: 13:46 Hyperlipidemia; Hypertension; ld1 - Immunization history:: Adult Immunizations up to date, . - Social history:: Smoking status: Patient denies any tobacco usage or history of. - Family history:: not pertinent. ROS: 17:28 Constitutional: Negative for fever, chills, and weight loss, Eyes: Negative for injury, tami pain, redness, and discharge, ENT: Negative for injury, pain, and discharge, Neck: Negative for injury, pain, and swelling, Respiratory: Negative for shortness of breath, cough, wheezing, and pleuritic chest pain, Abdomen/GI: Negative for abdominal pain, nausea, vomiting, diarrhea, and constipation, Back: Negative for injury and pain, : Negative for injury, bleeding, discharge, and swelling, MS/Extremity: Negative for injury and deformity, Skin: Negative for injury, rash, and discoloration, Psych: Negative for depression, anxiety, suicide ideation, homicidal ideation, and hallucinations, Allergy/Immunology: Negative for hives, rash, and allergies, Endocrine: Negative for neck swelling, polydipsia, polyuria, polyphagia, and marked weight changes, Hematologic/Lymphatic: Negative for swollen nodes, abnormal bleeding, and unusual bruising. 17:28 Cardiovascular: Positive for chest pain, of the chest. 17:28 Neuro: Positive for dizziness, weakness. Exam: 17:28 Constitutional: This is a well developed, well nourished patient who is awake, alert, tami and in no acute distress. Head/Face: Normocephalic, atraumatic. Eyes: Pupils equal round and reactive to light, extra-ocular motions intact. Lids and lashes normal. Conjunctiva and sclera are non-icteric and not injected. Cornea within normal limits. Periorbital areas with no swelling, redness, or edema. ENT: Nares patent. No nasal discharge, no septal abnormalities noted. Tympanic membranes are normal and external auditory canals are clear. Oropharynx with no redness, swelling, or masses, exudates, or evidence of obstruction, uvula midline. Mucous membranes moist. Neck: Trachea midline, no thyromegaly or masses palpated, and no cervical lymphadenopathy. Supple, full range of motion without nuchal rigidity, or vertebral point tenderness. No Meningismus. Chest/axilla: Normal chest wall appearance and motion. Nontender with no deformity. No lesions are appreciated. Cardiovascular: Regular rate and rhythm with a normal S1 and S2. No gallops, murmurs, or rubs. Normal PMI, no JVD. No pulse deficits. Respiratory: Lungs have equal breath sounds bilaterally, clear to auscultation and percussion. No rales, rhonchi or wheezes noted. No increased work of breathing, no retractions or nasal flaring. Abdomen/GI: Soft, non-tender, with normal bowel sounds. No distension or tympany. No guarding or rebound. No evidence of tenderness throughout. Back: No spinal tenderness. No costovertebral tenderness. Full range of motion. Skin: Warm, dry with normal turgor. Normal color with no rashes, no lesions, and no evidence of cellulitis. MS/ Extremity: Pulses equal, no cyanosis. Neurovascular intact. Full, normal range of motion. Neuro: Awake and alert, GCS 15, oriented to person, place, time, and situation. Cranial nerves II-XII grossly intact. Motor strength 5/5 in all extremities. Sensory grossly intact. Cerebellar exam normal. Normal gait. Psych: Awake, alert, with orientation to person, place and time. Behavior, mood, and affect are within normal limits. 17:28 Musculoskeletal/extremity: DVT Exam: No signs of deep vein thrombosis. no pain, no swelling, no tenderness, negative Homans' sign noted on exam, no appreciated bluish discoloration, no erythema, no increased warmth. 17:36 ECG was reviewed by the Attending Physician. tami Vital Signs: 13:44 BP 155 / 64; Pulse 70; Resp 18; Temp 98.9(O); Pulse Ox 95% on R/A; Weight 88.45 kg; ld1 Height 5 ft. 3 in. (160.02 cm); Pain 0/10; 16:00 BP 166 / 70; Pulse 56; Resp 23; Pulse Ox 97% on R/A; ld1 19:01 BP 186 / 85; Pulse 59; Resp 20; Temp 98.5; Pulse Ox 98% on R/A; lh3 20:18 BP 185 / 67; Pulse 53; Resp 20; Pulse Ox 99% on R/A; lh3 20:40 BP 155 / 66; Pulse 54; Resp 20; Temp 98.5(O); Pulse Ox 98% on R/A; lh3 13:44 Body Mass Index 34.54 (88.45 kg, 160.02 cm) ld1 MDM: 14:29 Patient medically screened. tami 17:31 Differential diagnosis: cardiac arrhythmia, CVA, generalized weakness, idiopathic tami dizziness, TIA. Data reviewed: vital signs, nurses notes, lab test result(s), EKG, radiologic studies, CT scan, plain films. Data interpreted: property assessment monitor: rate is 56 beats/min, rhythm is regular, Pulse oximetry: on room air is 97 %. Test interpretation: by ED physician or midlevel provider: ECG, plain radiologic studies. Counseling: I had a detailed discussion with the patient and/or guardian regarding: the historical points, exam findings, and any diagnostic results supporting the discharge/admit diagnosis, lab results, radiology results, the need for further work-up and treatment in the hospital. 04/06 14:17 Order name: Basic Metabolic Panel; Complete Time: 15:51 04/06 14:17 Order name: CBC with Diff; Complete Time: 15:51 04/06 14:17 Order name: LFT's; Complete Time: 15:51 04/06 14:17 Order name: Magnesium; Complete Time: 15:51 04/06 14:17 Order name: NT PRO-BNP; Complete Time: 15:51 04/06 14:17 Order name: PT-INR; Complete Time: 15:51 04/06 14:17 Order name: Troponin (emerg Dept Use Only); Complete Time: 15:51 04/06 14:17 Order name: XRAY Chest (1 view); Complete Time: 17:25 04/06 14:30 Order name: Urine Culture [facility] 04/06 15:51 Order name: CT Head Brain wo Cont; Complete Time: 17:25 [facility] 04/06 18:25 Order name: Urine Dipstick-Ancillary; Complete Time: 19:58 EDMT 04/06 19:58 Order name: Urine Microscopic Only la1 04/06 20:05 Order name: SARS-COV-2 RT PCR EDMT 04/06 14:17 Order name: EKG; Complete Time: 14:18 04/06 14:17 Order name: Cardiac monitoring; Complete Time: 14:44 04/06 14:17 Order name: EKG - Nurse/Tech; Complete Time: 14:57 04/06 14:17 Order name: IV Saline Lock; Complete Time: 14:40 04/06 14:17 Order name: Labs collected and sent; Complete Time: 14:44 04/06 14:17 Order name: O2 Per Protocol; Complete Time: 14:44 04/06 14:17 Order name: O2 Sat Monitoring; Complete Time: 14:40 04/06 14:30 Order name: Urine Dipstick-Ancillary (obtain specimen); Complete Time: 18:28 [facility] 04/06 17:28 Order name: US Carotid Artery Bilateral; Complete Time: 19:58 [facility] EC:36 Rate is 52 beats/min. Rhythm is regular. QRS Solano is Normal. RI interval is normal. QRS tami interval is normal. QT interval is normal. No Q waves. T waves are Normal. No ST changes noted. Clinical impression: NSR w/ Non-specific ST/T Changes and Sinus bradycardia. Interpreted by me. Reviewed by me. Administered Medications: 14:46 Drug: NS 0.9% 1000 ml Route: IV; Rate: 125 ml/hr; Site: right hand; aj 16:06 Drug: Meclizine 50 mg Route: PO; ld1 16:06 Follow up: Response: No adverse reaction ld1 17:37 Drug: Aspirin Chewable Tablet 324 mg Route: PO; ld1 17:38 Follow up: Response: No adverse reaction ld1 17:37 Drug: Pepcid (famotidine) 20 mg Route: IVP; Site: right hand; ld1 17:37 Follow up: Response: No adverse reaction ld1 Disposition Summary: 04/06/21 17:32 Hospitalization Ordered Hospitalization Status: Observation tami Location: Telemetry/MedSurg (observation) tami Condition: Stable tami Problem: new tami Symptoms: have improved tami Bed/Room Type: Standard tami Provider: Brent Burton(04/06/21 17:49) [email or web address] Room Assignment: 231(04/06/21 20:07) Diagnosis - Chest pain, unspecified tami - Essential (primary) hypertension tami - Dizziness and giddiness tami Forms: - Medication Reconciliation Form tami - SBAR form tami Signatures: Dispatcher [employer] EDMS Linda Larios RN RN mw Anderson, Corey, MD MD cha Williams, Irene, RN RN iw Attema, Lee, CANVAS SHRINKER-C CANVAS SHRINKER-Cla1 Lizbet Garcia RN RN ld1 Apoorva Sanchez aj2 Corrections: (The following items were deleted from the chart) 17:49 17:32 Arash Bolanos cha la1 18:41 17:29 CORONAVIRUS+MR.LAB.BRZ ordered. EDMS EDMS 20:07 17:32 tami eduardo
[2021-04-06] MEDS ORDERED: FAMOTIDINE 20 MG/2 ML VIAL IV ONE (17:57)
[2021-04-06] MEDS ORDERED: ASPIRIN EC 81 MG TAB PO ONE (17:57)
[2021-04-06 18:27] LABS: Urine Blood Negative (Negative); Urine Glucose Negative (Negative); Urine Protein 1+ (Negative)
--- NOTE | 2021-04-06 19:16 | RAD REPORT ---
EXAM DESCRIPTION: US - CP - 04/06/2021 6:36 pm CLINICAL HISTORY: DIZZINESS COMPARISON: Soft Tissue Neck W/Contr dated 01/25/2021; Head Brain Wo Cont dated 04/06/2021 TECHNIQUE: Real-time sonographic evaluation of both carotid systems was performed. Doppler interroga tion was performed with waveform tracing bilaterally. FINDINGS: Normal high resistance waveforms are noted in the right external carotid artery. The left external carotid artery was not visualized. The common carotid arteries and internal carotid arteries show normal low resistance waveforms. Mixed soft and hard plaque at the right common carotid artery. Peak systolic and end diastolic veloci ty values and the ICA/CCA ratios are in the non-hemodynamically significant range. Antegrade flow seen in both vertebral arteries. IMPRESSION: Mild atherosclerosis of the right carotid system. No evidence of a hemodynamically significant stenosis.
--- NOTE | 2021-04-06 20:11 | P.HP ---
Certification for Inpatient Patient admitted to: Observation With expected LOS: <2 Midnights Patient will require the following post-hospital care: None Practitioner: I am a practitioner with admitting privileges, knowledge of patient current condition, hospital course, and medical plan of care. Services: Services provided to patient in accordance with Admission requirements found in Title 42 Section 412.3 of the Code of Federal Regulations Patient History Date of Service: 04/06/21 Primary Care Provider: Dr. Pryor Reason for admission: Dizziness, chest pain History of Present Illness: 85-year-old female with history of hypertension, hyperlipidemia presents emergency department for dizziness/chest pain. Patient was at home with her family when she began complaining of dizziness feeling like the room was spinning, after this patient began having shortness of breath and chest pain, EMS was called to transport patient to the hospital for further evaluation. Patient was evaluated in the emergency department labs were unremarkable urine 1+ leukoesterase microscopic analysis pending Covid negative chest x-ray/CT head without contrast negative, EKG without acute changes. Patient still with some difficulty with ambulation and sensation of dizziness not related to movement of the head, no nystagmus or other neurological deficits on exam. Doppler of the carotid arteries negative for any significant hemodynamic changes. ED provider wishes to admit under observation for dizziness/chest pain. Allergies No Known Drug Allergies Allergy (Unverified 11/02/14 05:21) Unknown Home Medications: Aspirin Tab [Ricardo Aspirin*] 81 mg PO DAILY #90 tab 06/18/13 Atorvastatin Calcium [Lipitor*] 10 mg PO BEDTIME #30 tab 06/18/13 Escitalopram [Lexapro*] 10 mg PO DAILY #30 tab 06/18/13 Smz./Tmp. [Bactrim Ds 800 MG/160 MG*] 1 tab PO BID #14 tab 06/18/13 carvediloL [Coreg*] 3.125 mg PO BID #60 tab 06/18/13 lisinopriL [Prinivil*] 20 mg PO DAILY 06/18/13 - Past Medical/Surgical History Diabetic: No -: Hyperlipidemia -: HTN -: Obesity -: Psychosocial/ Personal History: , lives with her family - Family History Sister -: Cancer - Social History Alcohol use: No CD- Drugs: No Caffeine use: No Place of Residence: Home Review of Systems 10-point ROS is otherwise unremarkable Respiratory: Shortness of Breath Cardiovascular: Chest Pain, Light Headedness, As per HPI Neurological: As per HPI Physical Examination - Physical Exam General: Alert, In no apparent distress, Oriented x3 HEENT: Atraumatic, PERRLA, Mucous membr. moist/pink, EOMI, Sclerae nonicteric Neck: Supple, 2+ carotid pulse no bruit, No LAD, Without JVD or thyroid abnormality Respiratory: Clear to auscultation bilaterally, Normal air movement Cardiovascular: Regular rate/rhythm, Normal S1 S2 Gastrointestinal: Normal bowel sounds, No tenderness Musculoskeletal: No tenderness Integumentary: No rashes Neurological: Normal speech, Normal strength at 5/5 x4 extr, Normal tone, Sensation intact, Cranial nerves 3-12 intact, Normal affect Lymphatics: No axilla or inguinal lymphadenopathy - Studies Laboratory Data (last 24 hrs) 04/06/21 14:16: PT 11.1, INR 0.97 04/06/21 14:16: WBC 8.40, Hgb 14.8, Hct 44.3, Plt Count 204 04/06/21 14:16: Sodium 139, Potassium 4.9, BUN 18, Creatinine 0.68, Glucose 110 H, Magnesium 2.3, Total Bilirubin 0.4, AST 16, ALT 15, Alkaline Phosphatase 107 Assessment and Plan - Plan Assessment: Chest pain/dizziness rule out CVA/ACS Hypertension Hyperlipidemia Plan: Chest pain/dizziness rule out CVA/ACS: Monitor on telemetry, trend troponins, echocardiogram/MRI stroke protocol ordered. Carotid Doppler negative for hemodynamic changes. Patient without any neurological deficits at this time although still feeling little bit dizzy will have patient see physical therapy as well. Cardiology consulted. Hypertension: Home medication continued Hyperlipidemia: Continue with statin therapy DVT PPX: Lovenox Code status: Full Discharge Plan: Home Plan to discharge in: 24 Hours - Advance Directives Does patient have a Living Will: No Does patient have a Durable POA for Healthcare: No - Code Status/Comfort Care Code Status Assessed: Yes (FC) Critical Care: No Time Spent Managing Pts Care (In Minutes): 55
[2021-04-06] MEDS ORDERED: ATORVASTATIN 40 MG TAB PO SCH (21:17)
[2021-04-06] MEDS ORDERED: ONDANSETRON 4 MG/2 ML VIAL IV PRN (21:17)
[2021-04-06] MEDS ORDERED: ACETAMINOPHEN 500 MG TAB PO PRN (21:17)
[2021-04-06 21:31] VITALS: O2SAT 98
[2021-04-06 21:52] VITALS: BMI 31.8
[2021-04-07] MEDS ORDERED: HYDRALAZINE HCL 20 MG/ML VIAL IV PRN (00:04)
[2021-04-07 05:44] LABS: Absolute Lymphocytes (CBC) 2.1 K/uL (0.7-4.9); Basophils % 0.5 % (0-1.3); Hematocrit 43.3 % (36.0-45.0); Lymphocytes % 19.7 % (15.3-44.8); MPV 8.7 fL (7.6-11.3); RBC Red Blood Cell Count 4.69 M/uL (3.86-4.86)
[2021-04-07 06:21] LABS: ALT/SGPT 15 U/L (12-78); AST/SGOT 15 U/L (15-37); Albumin 3.4 g/dL (3.4-5.0); Alkaline Phosphatase 98 U/L (45-117); BUN Blood Urea Nitrogen 12 mg/dL (7-18); Bicarbonate 26 mmol/L (21-32); Bilirubin Total 0.6 mg/dL (0.2-1.0); Glucose Level 95 mg/dL (74-106); HDL Cholesterol 58 mg/dL (40-60); LDL Cholesterol, Calculated 70 (<130); Potassium 3.8 mmol/L (3.5-5.1); Protein, Total 7.1 g/dL (6.4-8.2); Sodium Level 141 mmol/L (136-145); Troponin I < 0.02 ng/mL (0.0-0.045)
[2021-04-07] MEDS ORDERED: PNEUMOCOCCAL VACCINE 0.5 ML IMVAC ONE (08:00)
--- NOTE | 2021-04-07 08:16 | EKG ---
Test Date: 2021-04-06 Test Time: 14:55:22 Multiple Drum Sander Helper: STEPHANIE MEASUREMENT RESULTS: Intervals: Rate: 52 MI: 164 QRSD: 132 QT: 496 QTc: 461 [place]: P: 41 MI: 164 QRS: -50 T: -47 INTERPRETIVE STATEMENTS: Sinus bradycardia Right bundle branch block Left anterior fascicular block Bifascicular block Moderate voltage criteria for LVH, may be normal variant T wave abnormality, consider lateral ischemia Abnormal ECG Compared to ECG 01/25/2021 20:06:01 Sinus rhythm no longer present Bifascicular block still present T-wave abnormality still present Possible ischemia still present Electronically Signed On 04-07-21 08:14:18 CDT by Keron Hinkle
--- NOTE | 2021-04-07 08:55 | RAD REPORT ---
EXAM DESCRIPTION: MRI - MRA Head Wo Cont - 04/07/2021 8:18 am CLINICAL HISTORY: dizziness COMPARISON: Head Brain Wo Cont dated 04/06/2021; Brain W/Wo Cont dated 04/07/2021 FINDINGS: There is a severe short-segment stenosis of the left distal M1 segment of the middle cereb ral artery. The superior cortical branch of M2 is occluded proximally. It does reconstitute. There is a moderate stenosis of the right M1 segment of the middle cerebral artery. The vertebral arteries ar e patent. The left vertebral artery is dominant. The posterior cerebral arteries are patent. Question infundibulum at the right A1 segment of the DESTIN versus 1-2 mm aneurysm. This is of doubtful signific ance. 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 The superior branch of M2 is occluded proximally. The insular portion is stenotic if not occluded pr oximally. Moderate right M1 segment stenosis noted as well. The posterior circulation is intact.
[2021-04-07] MEDS ORDERED: ENOXAPARIN 40 MG/0.4 ML SQ SCH (09:00)
[2021-04-07] MEDS ORDERED: ASPIRIN EC 81 MG TAB PO SCH (09:00)
[2021-04-07] MEDS ORDERED: NEBIVOLOL HCL 5 MG TAB PO SCH (09:00)
[2021-04-07] MEDS ORDERED: POTASSIUM CL SA 10 MEQ TAB PO ONE (09:00)
[2021-04-07] MEDS ORDERED: FOLIC ACID 1 MG TABLET PO SCH (09:00)
--- NOTE | 2021-04-07 09:01 | RAD REPORT ---
EXAM DESCRIPTION: MRI - MRA Neck W/Wo Cont - 04/07/2021 8:20 am CLINICAL HISTORY: dizziness COMPARISON: Carotid Artery Bilateral dated 04/06/2021; Head Brain Wo Cont dated 04/06/2021 TECHNIQUE: MRA OF THE NECK WAS PERFORMED WITH WITHOUT CONTRAST FINDINGS: The common carotid artery is, external carotid arteries, and internal carotid artery is ar e widely patent without hemodynamically significant stenosis. The vertebral arteries are patent. The left vertebral artery is slightly dominant. IMPRESSION: No hemodynamically significant stenosis is present within the neck.
--- NOTE | 2021-04-07 09:05 | RAD REPORT ---
EXAM DESCRIPTION: MRI - Brain W/Wo Cont - 04/07/2021 8:20 am CLINICAL HISTORY: Dizziness COMPARISON: MRA Head Wo Cont dated 04/07/2021; Head Brain Wo Cont dated 04/06/2021 TECHNIQUE: Sagittal and axial T1-weighted images were obtained. Axial PD/heavily T2-weighted and T2- FLAIR images were obtained along with axial DWI/ADC mapping sequences. Axial and coronal post-contras t T1-weighted images were also obtained. FINDINGS: No intracranial hemorrhage, mass or acute infarction. There is no edema or shift of midlin e structures. No extra-axial fluid collections. Mild chronic small vessel ischemic changes. Cerebral atrophy. Post-contrast images show normal enhancement. No dural thickening. Trace right mastoid effusion. IMPRESSION: No acute intracranial abnormality. Specifically, no evidence of acute infarct. Mild chronometer assembler sheron small vessel ischemic changes.
[2021-04-07] MEDS ORDERED: lisinopriL 10 MG TAB PO ONE (12:27)
[2021-04-07 12:59] VITALS: BP 137/66; TEMP 97.9
--- NOTE | 2021-04-07 14:19 | P.DS ---
Admission Date: 04/06/21 Discharge Date: 04/07/21 Primary Care Provider: Dr. Pryor Disposition: ROUTINE DISCHARGE Discharge Condition: GOOD Reason for Admission: Dizziness, chest pain Consultations: Cardiology - Dr. Hinkle Neurology - Dr. Doyle Procedures: CXR (04/06): No acute cardiopulmonary disease CT head (04/06): FINDINGS: No intracranial hemorrhage, hydrocephalus or extra-axial fluid collection.No areas of brain edema or evidence of midline shift. Cerebral atrophy. Mild chronic small vessel ischemic changes . The paranasal sinuses and mastoids are clear. The calvarium is intact. IMPRESSION: No acute intracranial abnormality. Carotid artery ultrasound (04/06): FINDINGS: Normal high resistance waveforms are noted in the right external carotid artery. The left external carotid artery was not visualized. The common carotid arteries and internal carotid arteries show normal low resistance waveforms. Mixed soft and hard plaque at the right common carotid artery. Peak systolic and end diastolic velocity values and the ICA/CCA ratios are in the non- hemodynamically significant range. Antegrade flow seen in both vertebral arteries. IMPRESSION: Mild atherosclerosis of the right carotid system. No evidence of a hemodynamically significant stenosis. MRI brain (04/07): FINDINGS: No intracranial hemorrhage, mass or acute infarction. There is no edema or shift of midline structures. No extra-axial fluid collections. Mild chronic small vessel ischemic changes. Cerebral atrophy. Post-contrast images show normal enhancement. No dural thickening. Trace right mastoid effusion. IMPRESSION: No acute intracranial abnormality. Specifically, no evidence of acute infarct. Mild chronic small vessel ischemic changes. MRA brain (04/07): FINDINGS: There is a severe short-segment stenosis of the left distal M1 segment of the middle cerebral artery. The superior cortical branch of M2 is occluded proximally. It does reconstitute. There is a moderate stenosis of the right M1 segment of the middle cerebral artery. The vertebral arteries are patent. The left vertebral artery is dominant. The posterior cerebral arteries are patent. Question infundibulum at the right A1 segment of the DESTIN versus 1-2 mm aneurysm. This is of doubtful significance. 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 The superior branch of M2 is occluded proximally. The insular portion is stenotic if not occluded proximally. Moderate right M1 segment stenosis noted as well. The posterior circulation is intact. MRA neck (04/07): FINDINGS: The common carotid artery is, external carotid arteries, and internal carotid artery is are widely patent without hemodynamically significant stenosis. The vertebral arteries are patent. The left vertebral artery is slightly dominant. IMPRESSION: No hemodynamically significant stenosis is present within the neck. Echocardiogram (04/07): Normal 2D echocardiogram with Doppler. No wall motion abnormality. No effusion. 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 Patient was at home with her family when she began complaining of dizziness feeling like the room was spinning, after this patient began having shortness of breath and chest pain, EMS was called to transport patient to the hospital for further evaluation. Patient was evaluated in the emergency department labs were unremarkable urine 1+ leukoesterase microscopic analysis pending Covid negative chest x-ray/CT head without contrast negative, EKG without acute changes. Patient still with some difficulty with ambulation and sensation of dizziness not related to movement of the head, no nystagmus or other neurological deficits on exam. Doppler of the carotid arteries negative for any significant hemodynamic changes. ED provider wishes to admit under observation for dizziness/chest pain. Hospital Course: Chest painunclear etiology, troponin trended and remained negative. Monitored on telemetry without any events. Cardiology consulted, no further inpatient evaluation, will continue work-up as an outpatient. Lightheadedness/room spinning, most consistent with vertigo. Patient had quick improvement after meclizine. She is discharged home with meclizine as needed During work-up for above, patient underwent MRI/MRA of the brain, which revealed small areas of moderate to severe stenosis, possibly occlusion. MRI brain without any ischemic changes, suggesting these are chronic events. Neurology was consulted, and patient was counseled to follow-up with a neuro interventionalist in [place]. She may benefit from four-vessel angiogram for better assessment of the severity and planning ahead. Patient is discharged home on aspirin, Plavix, folic acid. She is to continue her statin and Bystolic. Allowing for permissive hypertension due to the severe stenosis/possible occlusion. There is a low possibility that her vertigo symptoms may be related. Vital Signs/Physical Exam: Temp Pulse Resp BP Pulse Ox 97.9 F 59 18 137/66 94 04/07/21 12:00 04/07/21 13:31 04/07/21 12:00 04/07/21 13:31 04/07/21 12:00 General: Alert, In no apparent distress, Oriented x3 HEENT: PERRLA, EOMI, Sclerae nonicteric Neck: No LAD Respiratory: Clear to auscultation bilaterally, Normal air movement Cardiovascular: No edema, Regular rate/rhythm Gastrointestinal: Soft and benign, Non-distended, No tenderness Musculoskeletal: No erythema, No tenderness Integumentary: No rashes, No significant lesion Neurological: Normal speech, Normal strength at 5/5 x4 extr, Cranial nerves 3-12 intact, Normal affect Laboratory Data at Discharge: WBC 10.80 K/uL (4.3-10.9) D 04/07/21 05:28 Hgb 14.5 g/dL (12.0-15.0) 04/07/21 05:28 Hct 43.3 % (36.0-45.0) 04/07/21 05:28 Plt Count 207 K/uL (152-406) 04/07/21 05:28 PT 11.1 SECONDS (9.5-12.5) 04/06/21 14:16 INR 0.97 04/06/21 14:16 Sodium 141 mmol/L (136-145) 04/07/21 05:28 Potassium 3.8 mmol/L (3.5-5.1) 04/07/21 05:28 BUN 12 mg/dL (7-18) 04/07/21 05:28 Creatinine 0.65 mg/dL (0.55-1.3) 04/07/21 05:28 Glucose 95 mg/dL (74-106) 04/07/21 05:28 Magnesium 2.3 mg/dL (1.8-2.4) 04/06/21 14:16 Total Bilirubin 0.6 mg/dL (0.2-1.0) 04/07/21 05:28 AST 15 U/L (15-37) 04/07/21 05:28 ALT 15 U/L (12-78) 04/07/21 05:28 Alkaline Phosphatase 98 U/L (45-117) 04/07/21 05:28 Troponin I < 0.02 ng/mL (0.0-0.045) 04/07/21 05:28 Triglycerides 137 mg/dL (<150) 04/07/21 05:28 Cholesterol 155 mg/dL (<200) 04/07/21 05:28 HDL Cholesterol 58 mg/dL (40-60) 04/07/21 05:28 Cholesterol/HDL Ratio 2.67 04/07/21 05:28 Home Medications: Atorvastatin Calcium 10 mg PO BEDTIME 04/06/21 Nebivolol HCl [Bystolic*] 5 mg PO DAILY 04/06/21 Aspirin [Children's Aspirin] 81 mg PO DAILY 30 Days #30 tab.chew 04/07/21 Clopidogrel Bisulfate [Plavix] 75 mg PO DAILY 30 Days #30 tablet 04/07/21 Folic Acid 1 mg PO DAILY 30 Days #30 tablet 04/07/21 Meclizine HCl 25 mg PO Q6H PRN #30 tab.chew 04/07/21 New Medications: Aspirin [Children's Aspirin] 81 mg PO DAILY 30 Days #30 tab.chew Folic Acid 1 mg PO DAILY 30 Days #30 tablet Meclizine HCl 25 mg PO Q6H PRN #30 tab.chew PRN Reason: Dizziness Clopidogrel Bisulfate [Plavix] 75 mg PO DAILY 30 Days #30 tablet Physician Discharge Instructions: PROBLEM: Chest Pain, Dizziness GOAL: Clear understanding of disease process INSTRUCTIONS: Your chest pain was evaluated by EKG and cardiac enzymes - which were normal and without signs of ischemia. Dr. Hinkle was consulted (Cardiology) and recommended follow up in his office for further evaluation. Your symptoms of room spinning is most consistent with vertigo, and you had improvement with meclizine. You are prescribed this medication to take as needed when you get these symptoms. It is unclear but unlikely that this may be caused by blockage of one of your small arteries in your brain. Your MRI did not show any ischemic changes/no stroke, but your MRA showed severe stenosis vs short-segment occlusion of the left distal M1 segment of the MCA. The superior branch of M2 is occluded proximally, and the right M1 segment has moderate segment stenosis as well. This is likely chronic and has been building up over many years since you did not have any stroke / ischemic changes on your MRI. Recommend following up with a neuro-interventionalist at [facility] [place] [place] in the next few weeks to further discuss next options. Possibly the need for a 4 vessel angiogram to further evaluate the level of blockage/stenosis. In the meantime you are discharged with prescriptions for aspirin, plavix (clopidogrel), and folic acid to reduce your risk of having a stroke. Continue your bystolic and statin as previously prescribed. If symptoms worsen, please go to the ER. If you have any questions regarding hospital stay, feel free to call . Diet: AHA Activity: Ad neeta DME DME: Date Ordered: Name of Company: [employer] Services Needed: Name of Company: Date or Referral: IMMUNIZATION Influenza Vaccine Indicated: Influenza Vaccine Given: Date Given: Pneumonia Vaccine Indicated: Yes Pneumonia Vaccine Given: No Date Given: Diet: AHA Activity: Ad neeta (no driving) Followup: Richar Pryor DO [Primary Care Provider] - Time spent managing pt's care (in minutes): 45
--- NOTE | 2021-04-07 16:11 | ECHO ---
HEIGHT: 5 ft 2 in WEIGHT: 174 lb 8 oz DATE OF STUDY: 04/07/[address]: Roger Grayson NP 2-DIMENSIONAL: YES M.MODE: YES DOPPLER: YES COLOR FLOW: YES TDS: NO PORTABLE: NO DEFINITY: NO BUBBLE STUDY: NO DIAGNOSIS: DIZZINESS, CHEST PAIN CARDIAC HISTORY: CATHERIZATION: NO SURGERY: NO PROSTHETIC VALVE: NO PACEMAKER: NO MEASUREMENTS (cm) DIASTOLIC (NORMALS) SYSTOLIC (NORMALS) IVSd 1.0 (0.6-1.2) LA Diam 3.1 (1.9-4.0) LVEF 71% LVIDd 4.3 (3.5-5.7) LVIDs 2.6 (2.0-3.5) %FS 40% LVPWd 1.1 (0.6-1.2) Ao Diam (2.0-3.7) 2 DIMENSIONAL ASSESSMENT: RIGHT ATRIUM: NORMAL LEFT ATRIUM: NORMAL RIGHT VENTRICLE: NORMAL LEFT VENTRICLE: NORMAL TRICUSPID VALVE: NORMAL MITRAL VALVE: NORMAL PULMONIC VALVE: NORMAL AORTIC VALVE: NORMAL PERICARDIAL EFFUSION: NONE AORTIC ROOT: NORMAL LEFT VENTRICULAR WALL MOTION: NORMAL DOPPLER/COLOR FLOW: NORMAL COMMENTS: NORMAL 2D ECHOCARDIOGRAM WITH DOPPLER. NO WALL MOTION ABNORMALITY. NO EFFUSION. TECHNOLOGIST: Marianna JEAN
--- NOTE | 2021-04-07 22:42 | CON ---
History Of Present Illness: Ms. Zambrano is an 85-year-old right-handed patient who was admitt ed [facility] with dizziness and chest pain. Dizziness is describe d as vertiginous with the room spinning, especially after moving from a bending to an upright positio n. She was found to have urinalysis suggestive of urinary tract infection. She did have a negative COVID test. Head CT scan was negative and brain MRI did not show any acute ischemic or hemorrhagic c hange. However, magnetic resonance angiogram of her head identified severe stenosis versus short-seg ment occlusion of the distal left M1 segment of the MCA and superior branch of the M2 segment is occl uded proximally. The insular portion is also stenotic or occluded and there is moderate right M1 seg ment stenosis as well. Posterior circulation was noted to be intact. Her neck magnetic resonance an giogram was unremarkable as well as her carotid artery ultrasound which showed no evidence of hemodyn amically significant stenosis. Echocardiogram identified a 71% left ventricular ejection fraction an d was a normal study. Her complete blood count with differential was completely normal. Chemistries essentially unremarkable as was liver function studies. Cholesterol 155, LDL 70, HDL 58. Thyroid f unction unremarkable. COVID test was negative. Since hospitalization, patient did receive some IV f luids. She did have very widely spread blood pressures ranging systolic close to 100 and diastolic a t highest was in the high 80s. She had orthostatic blood pressures, which did not change significant ly and during the study she was asymptomatic. Past Medical History: Hypertension, dyslipidemia, obesity, depression. Family History: Cancer in sisters. Past Surgical History: . Social History: The patient lives with , is , has a daughter who is very involved with her care. Allergies: NO KNOWN DRUG ALLERGIES. Medications: Aspirin 81 mg daily, Atorvastatin 10 mg at bedtime, Lexapro 10 mg daily. She is receiv ing Bactrim Double Strength twice daily, Coreg 3.125 mg twice daily, Prinivil 20 mg daily. Review of Systems: The patient and family deny any recent fevers, chills, nausea or vomiting but has dizziness as noted, that fluctuates. No focal deficits such as visual loss, change in speech or swallowing, change in s trength in the arms and legs. No sensory problems or incoordination in upper and lower extremities. Physical Examination: Vital Signs: Blood pressure 137/66, pulse 59, respiratory rate 18, temperature 97.9, oxygen saturati on 98%. Orthostatic blood pressures, lying , pulse 60, sitting blood pressure 133/69, puls e 62, standing blood pressure 134/71, pulse 66, she was asymptomatic. General: Ms. Zambrano was sitting inside of the bed, in no acute distress. HEENT: She is normocephalic, atraumatic. Sclerae anicteric. Oropharynx is pink and moist. Neck: Supple. Chest: Clear. Heart: Regular. Extremities: Show no clubbing, cyanosis, or edema. Neurologic: She is alert and oriented to person, place, time, and situation. She has no expressive or receptive aphasias. Her cranial nerves 2 through 12 are intact by exam. Motor examination of upp er and lower extremities 5/5 proximally and distally. Sensory exam intact in upper and lower extremi ties with mild stocking-glove loss. Reflexes 1+ in upper and lower extremities. Coordination intact in upper and lower extremities. Gait good stance, right arm swing. Assessment: Ms. 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 At this poin t, these changes may likely have been chronic and not acute. However, the patient could benefit from a 4-vessel angiogram and potential intra-arterial procedures in [place]. This was communicated with the patient. Plan: She should be on medical management at this point, aspirin 81 mg daily plus Plavix 75 mg daily , Lipitor 40 mg at bedtime, folic acid 1 mg daily. May keep blood pressures systolic above 150 to 17 0 in the short-term and in long-term if her blood flow can be addressed in [place], then management s hould be towards more normal systolic blood pressures. This was communicated with the patient and he r daughter who is in the room. She was given information to contact the [facility] for potential further evaluation of the intracranial vessels and procedures may be done as muriel molina, and she was discharged home with followup scheduled for [address] Doyle's office. FAYE/MELISA Voice ID: [id number] Report ID: [id number]
--- NOTE | 2021-04-12 12:53 | CON ---
Date of Consultation: 04/07/2021 Reason For Consultation: Chest pain, dizziness, anxiety, vertigo. History Of Present Illness: Ms. Zambrano is an 85-year-old woman. She is a patient of Dr. Luaren fisher. Came in with nonspecific complaint including general weakness, dizziness, nausea, atypical chest pain, vertigo. Denied PND, orthopnea, pedal edema, palpitations, or syncope. Denied any fever or c hills. Denied any shortness of breath. She has already ruled out for an [place]. Allergies: NONE. Review of Systems: Negative. Social History: Negative. Family History: Negative. Medications: At home include Lipitor, Bystolic. Past Medical History: Includes hypertension and dyslipidemia. Physical Examination: Vital Signs: Stable, afebrile. HEENT: Negative. Neck: Supple with no bruit. Chest: Clear to auscultation and percussion. Cardiac: Revealed a regular rhythm and rate. No murmurs, gallops, or rubs. Abdomen: Benign. Extremities: Revealed no clubbing, cyanosis, or edema. Diagnostic Data: Include neck MRA was negative. She had a carotid artery ultrasound that showed alivia e mild atherosclerosis. Her chest x-ray was negative. Her EKG was negative. A brain MRI with MRA r evealed severe stenosis versus short-segment occlusion of the left distal M1 segment of the MCA, the superior branch of the M2 was occluded proximally, moderate right M1 segment stenosis. Posterior cir culation was intact. Echocardiogram was normal. Impression And Plan: Vertigo and dizziness, probably secondary to what appeared to be cerebrovascula r disease. This is not an acute coronary syndrome. Her chest pain is very atypical. Echocardiogram is normal. EKG is normal CPKs, MBs, and troponin are normal. I agree with neurological consultatio n. The patient should probably be on aspirin, Plavix, statin, and antihypertensive medicine like she has taken. I will sign off her case for now. GEOFF/MELISA Voice ID: [id number] Report ID: [id number]
== END 2021-04-07 15:00 | disposition home or self-care (01) ==
LOC: ER 13:38 → ERHOLD 20:08 → 2ND 21:15
PROVIDERS: ADMIT Hospitalist; ATTEND Hospitalist
DX: R42 Dizziness and giddiness (principal); R07.89 Other chest pain; I10 Essential (primary) hypertension; I66.02 Occlusion and stenosis of left middle cerebral artery; I65.21 Occlusion and stenosis of right carotid artery; E78.5 Hyperlipidemia, unspecified; F32.9 Major depressive disorder, single episode, unspecified; E66.9 Obesity, unspecified; Z68.31 Body mass index [BMI] 31.0-31.9, adult; Z79.82 Long term (current) use of aspirin; Z20.822 Contact with and (suspected) exposure to COVID-19; Z80.9 Family history of malignant neoplasm, unspecified
CPT/HCPCS: 93005; 93306; 87088; 85025 ×2; 87086; 80048; 36415; 83735; 85610; 80061; 80076; 84443; 81003; 84484 ×3; 84439; 80053; 83880; 70450; 71045; 93880; 70553; 70544; 70549; 97161; 96374; 99285; U0003; A9577; J0360; J1650; J7030; J2405; G0378 ×2

== ENCOUNTER 2021-09-25 00:54 | Emergency (ER) | payer OTHER ==
--- OUTSIDE RECORDS SUMMARY | 2021-09-25 00:57 | XMS REPORT | Continuity of Care Document ---
:1935 Author Organization [facility] t Address [address] [place] [address] Care Team Providers Name Role Phone SYSTEM, NOT IN Primary Care Physician Unavailable Evert Pryor Attending Clinician Unavailable VERONA MATA Attending Clinician Unavailable Payers Payer Name Policy Type Policy Number Effective Date Expiration Date S ource MEDICARE A B [id number] 2002 00:00:00 Problems This patient has no known problems. Allergies, Adverse Reactions, Alerts Allergy Allergy Status Severity Reaction(s) Onset Inactive Treating Comm ents Source Name Type Date Date Clinician Lisinopr Adverse Active Info Not [facility] Reaction Available [facility] Cozaar Adverse Active Info Not [facility] Reaction Available [facility] NO KNOWN Allergy Active [facility] Medications Ordered Filled Start Stop Current Ordering Indication Dosage Frequency Signature Comments Components Source Medication Medication Date Date Medication? Clinician (SIG) Name Name Lipitor Lipitor Yes Richar [address] [facility] bedtime [facility] ent Clinics Bystolic Bystolic Yes Richar [address] [facility] the [facility] [place] - morning [facility] ent [facility] Procedures This patient has no known procedures. Encounters Start End Encounter Admission Attending Care Care Encounter Source Date/Time Date/Time Type Type Clinicians Facility Department ID 2021-08-18 Outpatient Pryor, [facility] [id number] [facility] [address] 13[facility]53:22 Richar [id number] [facility] 2021-08-18 Outpatient Pryor, [facility] 13:[facility] Richar [id number] [facility] 2021-08-18 Outpatient Pryor, [facility] 12:30:32 Richar [id number] [facility] 2021-08-18 Outpatient Pryor, [facility] 11:37:11 Richar [id number] [facility] 2021-08-18 Outpatient Pryor, [facility] 11:25:25 Richar [id number] [facility] 2021-09-23 2021-09-23 ambulatory [facility] [id number] [facility] 2021-08-23 2021-08-23 [facility] [id number] 14:55:01 16:04:12 [facility] 2021-04-08 2021-04-08 Outpatient [facility] [id number] [facility] 2021-03-08 2021-03-08 Outpatient [facility] [id number] [facility] 2021-03-08 2021-03-08 Outpatient [facility] [id number] [facility] 2021-02-09 2021-02-09 Outpatient [facility] [id number] [facility] 2021-02-05 2021-02-05 Outpatient [facility] [id number] [facility] 2020-09-03 2020-09-03 Outpatient [facility] [id number] [facility] 2020-03-09 2020-03-09 [facility] [id number] [facility] 14[facility]52:00 14:52:[address] [email or web address] [facility] l Medicine Outpati ent Clinics 2020-03-05 2020-03-05 [facility] [id number] 13:00:00 13:00:00 t [email or web address] [facility] Medicine Outpati ent Clinics 2020-03-05 2020-03-05 [facility] [id number] 13:00:00 13:00:00 t [email or web address] [facility] Medicine Outpati ent Clinics 2019-12-17 2019-12-17 [facility] [id number] 09:24:00 09:24:00 t [email or web address] [facility] Outpat[facility] Clin[facility] 2019-07-25 2019-07-25 [facility] [id number] 09:15:00 09:15:00 t [email or web address] [facility] Medicine Outpati ent Clinics 2019-04-24 2019-04-24 [facility] [id number] [address] 13:15:00 13:15:00 t [email or web address] [facility] Outpati ent Clinics 2018-10-23 2018-10-23 [facility] [id number] 13:00:00 13:00:00 t [email or web address] [facility] Outpati ent Clinics 2018-04-24 2018-04-24 [facility] [id number] 13:30:00 13:30:00 t [email or web address] [facility] Clin[facility] Results This patient has no known results.
[2021-09-25] MEDS ORDERED: ONDANSETRON 4 MG/2 ML VIAL ONE (01:50)
[2021-09-25] MEDS ORDERED: MORPHINE 4 MG/ML SYR ONE (01:50)
[2021-09-25 01:52] LABS: Absolute Lymphocytes (CBC) 2.1 K/uL (0.7-4.9); Hematocrit 41.4 % (36.0-45.0); Lymphocytes % 19.8 % (15.3-44.8); RBC Red Blood Cell Count 4.45 M/uL (3.86-4.86)
[2021-09-25 01:58] LABS: Protime INR 0.93
[2021-09-25 02:11] LABS: ALT/SGPT 24 U/L (12-78); AST/SGOT 15 U/L (15-37); Albumin 3.4 g/dL (3.4-5.0); Alkaline Phosphatase 129 U/L (45-117); BUN Blood Urea Nitrogen 18 mg/dL (7-18); Bicarbonate 27 mmol/L (21-32); Bilirubin Total 0.4 mg/dL (0.2-1.0); Glucose Level 109 mg/dL (74-106); Potassium 3.7 mmol/L (3.5-5.1); Protein, Total 7.1 g/dL (6.4-8.2); Sodium Level 141 mmol/L (136-145)
[2021-09-25 02:22] LABS: Bilirubin Direct < 0.1 mg/dL (0-0.2)
--- NOTE | 2021-09-25 04:48 | EDPHYS ---
Physician Documentation [facility] Name: Tiffany Zambrano Age: 86 yrs Sex: Female : 1935 Arrival Date: 09/25/2021 Time: 00:59 Bed 6 Private MD: ED Physician Hasmukh Bustamante HPI: 09/25 01:18 This 86 yrs old Female presents to ER via Unassigned with complaints of Fall mh7 Injury, Flank Pain. 01:18 Details of fall: The patient fell from an upright position, while walking, and struck 7 wood gerard. Onset: The symptoms/episode began/occurred 2 hour(s) ago. Associated injuries: The patient sustained Left flank, contusion, ecchymosis, painful injury, Left hand, ring finger, abrasion. Severity of symptoms: At their worst the symptoms were moderate, earlier today, in the emergency department the symptoms are unchanged. Tripped and fell while hurrying to get from there was ringing. Denies any head trauma or LOC.. Historical: - Allergies: 01:30 No Known Allergies; sm5 - Home Meds: 01:30 meclizine 25 mg Oral tab every 6 hours [Active]; folic acid 1 mg Oral tab 1 tab once sm5 daily [Active]; atorvastatin 10 mg Oral tab 1 tab once daily [Active]; donepezil 5 mg oral TbDi 1 tab once daily [Active]; clopidogrel 75 mg oral tab 1 tab once daily [Active]; nebivolol 5 mg oral tab 1 tab once daily [Active]; - Immunization history: Last tetanus immunization: unknown. - Social history:: Smoking status: Patient/guardian denies using tobacco, the patient reports quitting approximately 60 years ago. ROS: 01:18 Constitutional: Negative for fever, chills, and weight loss, Eyes: Negative for injury, mh7 pain, redness, and discharge, ENT: Negative for injury, pain, and discharge, Neck: Negative for injury, pain, and swelling, Cardiovascular: Negative for chest pain, palpitations, and edema, Respiratory: Negative for shortness of breath, cough, wheezing, and pleuritic chest pain, : Negative for injury, bleeding, discharge, and swelling, MS/Extremity: Negative for injury and deformity, Neuro: Negative for headache, weakness, numbness, tingling, and seizure, Psych: Negative for depression, anxiety, suicide ideation, homicidal ideation, and hallucinations, Allergy/Immunology: Negative for hives, rash, and allergies, Endocrine: Negative for neck swelling, polydipsia, polyuria, polyphagia, and marked weight changes, Hematologic/Lymphatic: Negative for swollen nodes, abnormal bleeding, and unusual bruising. Exam: 01:18 Head/Face: Normocephalic, atraumatic. Eyes: Pupils equal round and reactive to light, mh7 extra-ocular motions intact. Lids and lashes normal. Conjunctiva and sclera are non-icteric and not injected. Cornea within normal limits. Periorbital areas with no swelling, redness, or edema. Neck: Trachea midline, no thyromegaly or masses palpated, and no cervical lymphadenopathy. Supple, full range of motion without nuchal rigidity, or vertebral point tenderness. No Meningismus. Respiratory: Lungs have equal breath sounds bilaterally, clear to auscultation and percussion. No rales, rhonchi or wheezes noted. No increased work of breathing, no retractions or nasal flaring. 01:18 Cardiovascular: Regular rate and rhythm with a normal S1 and S2. No gallops, murmurs, or rubs. Normal PMI, no JVD. No pulse deficits. 01:18 Skin: Warm, dry with normal turgor. Normal color with no rashes, no lesions, and no evidence of cellulitis. 01:18 Neuro: Awake and alert, GCS 15, oriented to person, place, time, and situation. Cranial nerves II-XII grossly intact. Motor strength 5/5 in all extremities. Sensory grossly intact. Cerebellar exam normal. Normal gait. Psych: Awake, alert, with orientation to person, place and time. Behavior, mood, and affect are within normal limits. 01:18 Constitutional: The patient appears in no acute distress, alert, awake, uncomfortable. 01:18 Chest/axilla: Inspection: ecchymosis, that is mild, of the left lateral anterior chest Palpation: tenderness, that is moderate, of the left lateral anterior chest, that totally reproduces the patient's complaints, Axilla: are normal, Lymph nodes: lymphadenopathy is not appreciated. 01:18 Abdomen/GI: Inspection: obese Bowel sounds: normal, in all quadrants, Palpation: mild abdominal tenderness, in the left upper quadrant, mass, is not appreciated, rebound tenderness, is not appreciated, voluntary guarding, is not appreciated, involuntary guarding, is not appreciated, no appreciated organomegaly, Rectal exam: the exam is deferred, because of patient request, Indicators: McBurney's point is not tender, Vaughn's sign is negative, Rovsing's sign is negative, Obturator sign is negative, Psoas sign is negative, Liver: no appreciated palpable abnormalities, Hernia: not appreciated. 01:18 Back: pain, that is mild, normal spinal alignment noted, CVA tenderness, that is mild, is noted on the left, vertebral tenderness, is not appreciated, muscle spasm, is not present. 01:18 Musculoskeletal/extremity: Extremities: noted in the Left hand, ring finger: abrasion, ROM: intact in all extremities, Circulation is intact in all extremities. Sensation intact. Compartment Syndrome exam of affected extremity: is normal. no numbness, no tingling, no sensation deficit, no palor, no weak pulses, Joints: All joints appear normal with full range of motion. Weight bearing: able to fully bear weight, without difficulty, Tendon exam: specific tendon testing normal through active and passive range of motion Vital Signs: 01:17 BP 151 / 84; Pulse 58; Resp 19; Temp 98.2(O); Pulse Ox 98% on R/A; Weight 84.82 kg; sm5 Height 5 ft. 1 in. (154.94 cm); Pain 10/10; 02:30 BP 159 / 78; Pulse 56; Resp 17; Pulse Ox 94% on R/A; sm5 04:06 BP 116 / 70; Pulse 53; Resp 17; Pulse Ox 97% on R/A; sm5 04:58 BP 156 / 80; Pulse 57; Resp 18; Pulse Ox 97% on R/A; sm5 01:17 Body Mass Index 35.33 (84.82 kg, 154.94 cm) 5 Maribeth Coma Score: 01:27 Eye Response: spontaneous(4). Verbal Response: oriented(5). Motor Response: obeys sm5 commands(6). Total: 15. Trauma Score (Adult): 01:27 Eye Response: spontaneous(1); Verbal Response: oriented(1); Motor Response: obeys sm5 commands(2); Systolic BP: > 89 mm Hg(4); Respiratory Rate: 10 to 29 per min(4); [place] Score: 15; Trauma Score: 12 MDM: 04:43 Differential diagnosis: abrasion, closed head injury, contusion, fracture, sprain, mh7 strain. Data reviewed: vital signs, nurses notes, lab test result(s), CBC, electrolytes, radiologic studies, CT scan. Data interpreted: Pulse oximetry: on room air is 97 %. Interpretation: normal. Counseling: I had a detailed discussion with the patient and/or guardian regarding: the historical points, exam findings, and any diagnostic results supporting the discharge/admit diagnosis, lab results, radiology results, the need for outpatient follow up, to return to the emergency department if symptoms worsen or persist or if there are any questions or concerns that arise at home. Response to treatment: the patient's symptoms have markedly improved after treatment. 04:48 Patient medically screened. [facility] 09/25 01:16 Order name: Basic Metabolic Panel; Complete Time: 02:38 [facility] 09/25 01:16 Order name: CBC with Diff; Complete Time: 02:38 [facility] 09/25 01:16 Order name: Type And Screen; Complete Time: 02:38 [facility] 09/25 01:16 Order name: Protime (+inr); Complete Time: 02:38 [facility] 09/25 01:16 Order name: Ptt, Activated; Complete Time: 02:38 [facility] 09/25 01:16 Order name: LFT's; Complete Time: 02:38 [facility] 09/25 01:16 Order name: CT Traumagram (Head C Spine CAP W Con) [facility] 09/25 01:16 Order name: Labs collected and sent; Complete Time: 01:53 [facility] 09/25 01:17 Order name: Hand Left 3 View XRAY [facility] Administered Medications: 01:52 Drug: morphine 2 mg Route: IVP; Site: right wrist; sm5 04:07 Follow up: Response: Pain is decreased sm5 01:52 Drug: Zofran (Ondansetron) 4 mg Route: IVP; Site: right wrist; sm5 04:07 Follow up: Response: No adverse reaction sm5 Disposition Summary: 09/25/21 04:48 Discharge Ordered Location: Home [facility] Problem: [facility] Symptoms: have improved [facility] Condition: Stable mh7 Diagnosis - Fall on same level from slipping, tripping and stumbling with subsequent striking [facility] against object - Contusion of abdominal wall 7 - Contusion of back wall of thorax 7 - Contusion of front wall of thorax 7 - Contusion of left ring finger without damage to nail [facility] Followup: [facility] - With: Private Physician - When: 1 - 2 days - Reason: Worsening of condition, Recheck today's complaints, Continuance of care, Re-evaluation by your physician Discharge Instructions: - Discharge Summary Sheet [facility] - Hand Contusion, [id number] 7 - Contusion, [id number] 7 - Fall Prevention in the Home, Adult, [id number] [facility] Forms: - Medication Reconciliation Form [facility] - Thank You Letter [facility] - Antibiotic Education [facility] - Prescription Opioid Use [facility] Signatures: Dispatcher [employer] Hasmukh Hays MD MD 7 Abby Cooper RN RN 5 Corrections: (The following items were deleted from the chart) 01:33 01:30 PMHx: Hyperlipidemia; 5 5 01:33 01:30 PMHx: Hypertension; 5 5
--- NOTE | 2021-09-25 04:48 | ER ---
Nurse's Notes [facility] Name: Tiffany Zambrano Age: 86 yrs Sex: Female : 1935 Arrival Date: 09/25/2021 Time: 00:59 Bed 6 Private MD: Diagnosis: Fall on same level from slipping, tripping and stumbling with subsequent striking against object;Contusion of abdominal wall;Contusion of back wall of thorax;Contusion of front wall of thorax;Contusion of left ring finger without damage to nail Presentation: 09/25 01:17 Chief complaint: Patient states: got up to answer the phone and fell on her left side sm5 on the floor. Coronavirus screen: Vaccine status: Patient reports receiving the 2nd dose of the covid vaccine. Ebola Screen: No symptoms or risks identified at this time. Initial Sepsis Screen: Does the patient meet any 2 criteria? No. Patient's initial sepsis screen is negative. Does the patient have a suspected source of infection? No. Patient's initial sepsis screen is negative. Risk Assessment: Do you want to hurt yourself or someone else? Patient reports no desire to harm self or others. Onset of symptoms was September 24, 2021 at 23:00. 01:17 Acuity: YESENIA 3 sm5 01:17 Method Of Arrival: Wheelchair [facility] 01:27 Care prior to arrival: None. Mechanism of Injury: Fall from standing position. Trauma 5 event details: [facility], Injury occurred: at home. Injury occurred: September 24, 2021 Injury occurred at: 23:00. Trauma Activation: Physician: ED Physician; Name: Robby; Notified At: 01:13; Arrived At: Physician: General Surgeon; Name: ; Notified At: 01:13; Arrived At: Physician: Radiology; Name: ; Notified At: 01:13; Arrived At: Physician: Respiratory; Name: ; Notified At: 01:13; Arrived At: Physician: Lab; Name: ; Notified At: 01:13; Arrived At: Historical: - Allergies: 01:30 No Known Allergies; 5 - Home Meds: 01:30 meclizine 25 mg Oral tab every 6 hours [Active]; folic acid 1 mg Oral tab 1 tab once sm5 daily [Active]; atorvastatin 10 mg Oral tab 1 tab once daily [Active]; donepezil 5 mg oral TbDi 1 tab once daily [Active]; clopidogrel 75 mg oral tab 1 tab once daily [Active]; nebivolol 5 mg oral tab 1 tab once daily [Active]; - Immunization history: Last tetanus immunization: unknown. - Social history:: Smoking status: Patient/guardian denies using tobacco, the patient reports quitting approximately 60 years ago. Screenin:16 Abuse screen: Denies threats or abuse. Denies injuries from another. Tuberculosis sm5 screening: No symptoms or risk factors identified. 02:12 Nutritional screening: No deficits noted. Fall Risk Fall in past 12 months (25 points). sm5 Secondary diagnosis (15 points) dementia, IV access (20 points). Ambulatory Aid- None/Bed Rest/Nurse Assist (0 pts). Gait- Normal/Bed Rest/Wheelchair (0 pts) Mental Status- Oriented to own ability (0 pts). Total Marte Fall Scale indicates High Risk Score (45 or more points). Fall prevention measures have been instituted. Side Rails Up X 2 Placed Close to Nursing Station Frequent Obs/Assessments Occuring Family Present and informed to notify staff if the need to leave the bedside As available patient and family educated on Fall Prevention Program and Strategies. Primary Survey: 01:16 NO uncontrolled hemorrhage observed. A: The patient is alert. Airway: patent. sm5 Breathing/Chest: Respiratory pattern: regular, Respiratory effort: spontaneous. Circulation: Heart tones present. Pulses: palpable bilateral radial, brachial, femoral, popliteal, posterior tibial and and dorsalis pedis arteries.. Disability Alert. Exposure/Environment: All clothing and personal items were removed. There is no evidence of uncontrolled external bleeding. Obvious injury(ies) are noted at this time: bruising to L side rib. 02:13 Reassessment Airway Airway Patent Breathing/Chest Respiratory pattern Regular sm5 Circulation Heart tones Present Disability Alert. Secondary Survey: 01:26 HEENT: No deficits noted. Gastrointestinal: No deficits noted. : No deficits noted. sm5 Musculoskeletal: No deficits noted. Injury Description: Bruise sustained to left lateral anterior chest. Assessment: 01:23 General: Appears in no apparent distress. Behavior is cooperative. Pain: Complains of sm5 pain in left rib cage. Neuro: Level of Consciousness is awake, alert, Oriented to Appropriate for age. Cardiovascular: No deficits noted. Capillary refill < 3 seconds Patient's skin is warm and dry. Respiratory: No deficits noted. Airway is patent Trachea midline Respiratory effort is even, unlabored. Derm: Bruising that is on left lateral anterior chest. 03:59 Reassessment: pt ambulated to bathroom. sm5 04:58 Reassessment: Patient states feeling better. 5 Vital Signs: 01:17 BP 151 / 84; Pulse 58; Resp 19; Temp 98.2(O); Pulse Ox 98% on R/A; Weight 84.82 kg; sm5 Height 5 ft. 1 in. (154.94 cm); Pain 10/10; 02:30 BP 159 / 78; Pulse 56; Resp 17; Pulse Ox 94% on R/A; sm5 04:06 BP 116 / 70; Pulse 53; Resp 17; Pulse Ox 97% on R/A; sm5 04:58 BP 156 / 80; Pulse 57; Resp 18; Pulse Ox 97% on R/A; sm5 01:17 Body Mass Index 35.33 (84.82 kg, 154.94 cm) sm5 Maribeth Coma Score: 01:27 Eye Response: spontaneous(4). Verbal Response: oriented(5). Motor Response: obeys sm5 commands(6). Total: 15. Trauma Score (Adult): 01:27 Eye Response: spontaneous(1); Verbal Response: oriented(1); Motor Response: obeys sm5 commands(2); Systolic BP: > 89 mm Hg(4); Respiratory Rate: 10 to 29 per min(4); [place] Score: 15; Trauma Score: 12 ED Course: 00:59 Patient arrived in ED. ja2 01:06 Hasmukh Bustamante MD is Attending Physician. mh7 01:16 Abby Cooper RN is Primary Nurse. sm5 01:17 Patient has correct armband on for positive identification. Bed in low position. Call sm5 light in reach. Side rails up X2. 01:23 Triage completed. sm5 01:27 Arm band placed on right wrist. sm5 01:32 Inserted saline lock: 20 gauge in right wrist, using aseptic technique. Blood collected.sm5 01:41 Hand Left 3 View XRAY In Process Unspecified. EDMS 01:53 LFT's Sent. sm5 01:53 Protime (+inr) Sent. sm5 01:53 Ptt, Activated Sent. sm5 01:53 Basic Metabolic Panel Sent. sm5 01:53 CBC with Diff Sent. sm5 01:53 Type And Screen Sent. sm5 02:12 Patient maintains SpO2 saturation greater than 95% on room air. Thermoregulation: warm sm5 blanket given to patient. 02:30 No provider procedures requiring assistance completed. sm5 02:57 CT Traumagram (Head C Spine CAP W Con) In Process Unspecified. EDMS 04:59 IV discontinued, intact, bleeding controlled, No redness/swelling at site. Pressure sm5 dressing applied. Administered Medications: 01:52 Drug: morphine 2 mg Route: IVP; Site: right wrist; sm5 04:07 Follow up: Response: Pain is decreased sm5 01:52 Drug: Zofran (Ondansetron) 4 mg Route: IVP; Site: right wrist; sm5 04:07 Follow up: Response: No adverse reaction 5 Output: 04:59 Urine: 350ml (Voided); Total: 350ml. 5 Outcome: 04:48 Discharge ordered by . [facility] 04:59 Discharged to home via wheelchair. sm5 04:59 Condition: stable 04:59 Discharge instructions given to patient, family, Instructed on discharge instructions, follow up and referral plans. Demonstrated understanding of instructions, follow-up care. 04:59 Patient's length of stay was not longer than 2 hours. 05:00 Patient left the ED. 5 Signatures: Dispatcher [employer] EDAZ Hasmukh Bustamante MD MD [facility] Sana Enciso Sarah, RN RN sm5 Corrections: (The following items were deleted from the chart) 01:33 01:30 PMHx: Hyperlipidemia; sm5 sm5 01:33 01:30 PMHx: Hypertension; sm5 sm5
[2021-09-25 05:09] VITALS: TEMP 98.2
[2021-09-25 05:12] VITALS: O2SAT 97
[2021-09-25 05:13] VITALS: BP 156/80
--- NOTE | 2021-09-25 08:01 | RAD REPORT ---
EXAM DESCRIPTION: RAD - Hand Left 3 View - 09/25/2021 1:41 am CLINICAL HISTORY: fall COMPARISON: No comparisons FINDINGS/IMPRESSION: No acute fracture. No acute traumatic malalignment. 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
--- NOTE | 2021-09-25 22:03 | RAD REPORT ---
EXAM DESCRIPTION: CT - Head C Spine Cap W Con - 09/25/2021 6:50 am ADDENDUM #1 Addendum: CT scan of the pelvis with contrast: Multiple consecutive tomograms of the pelvis were performed afte r the administration of IV contrast utilizing 5 m slice thickness at 5 mm interval reconstruction. The small bowel and large bowel demonstrate to be within normal limits. There is minimal diverticulos is within the sigmoid colon. The appendix is unremarkable. There is atherosclerotic disease at the aortic bifurcation/iliac arteries. There is no evidence for pelvic ascites and/or adenopathy. The urinary bladder demonstrate to be unremarkable. The uterus demonstrate the presence of a slightly right fundal lesion with rim enhancement measuring 1.7 x 1.5 cm corresponding to a small fibroid. Th ere are no adnexal masses. Bone windows of the pelvis demonstrate no evidence for acute bony injuries. Bilateral hip joints demo nstrate to be unremarkable. Superior and inferior pubic rami demonstrate to be unremarkable. IMPRESSION: Unremarkable CT scan of the pelvis with contrast. No evidence for acute bony injuries. Electronically signed by: Tio Zuleta MD 09/25/2021 3:45 AM TOWER OBSERVER End of Addendum EXAM DESCRIPTION: Head C Spine Cap W Con 09/25/2021 3:07 AM TOWER OBSERVER CLINICAL HISTORY: 86 years, Female, Fall COMPARISON: 04/06/2021. FINDINGS: Multiple transaxial tomograms of the brain were obtained from the base of the skull to the vertex without contrast. 2-D multiplanar reformats and the coronal and sagittal plane were performed and reviewed. Multiple axial CT images through the cervical spine were obtained at 2 mm slice thickness at 2 mm int erval reconstruction. In addition 2-D multiplanar reformats and the sagittal coronal plane were perfo rmed and reviewed. Subsequent Contrast-enhanced images of the chest, abdomen and the were performed utilizing 5 mm slice thickness at 5 mm interval reconstruction from the lung apices to the iliac crests after the adminis tration of IV contrast. This exam was performed according to our departmental dose-optimization protocol, which includes auto mated exposure control, adjustment of the mA and/or kV according to patient size and/or use of iterat sulema reconstruction technique. CT head: Brain parenchyma demonstrate mild prominence of the sulci and gyri are corresponding to mild cerebral and cerebellar atrophy. There is minimal periventricular white matter changes of microvascu lar ischemia. There is no midline shift and/or mass effect. There is no evidence for acute intracrani al hemorrhage. Lateral ventricles and cisterns displace normal appearance. No intra or extra axia l fluid collections were seen. The calvarium is intact with no evidence for fracture. The visualized portions of the paranasal sinuses and orbits demonstrate to be clear. CT C-spine: The alignment of the vertebral bodies are normal. There is no evidence of fracture or s ubluxation. There is degenerative disc disease with decreased intervertebral disc height, anterior sp ondylosis and posterior osteophyte complex at C5/C6, C6/C7 and C7/T1. The spinal canal demonstrate no evidence for significant stenosis. Neural foramina demonstrate to be unremarkable. There are uncover tebral degenerative changes at C2 6-T1. There is no prevertebral soft tissue swelling. Sagittal cor onal reformatted images demonstrate no subluxation or bony abnormalities. CT chest: The lung demonstrate dependent atelectatic changes. The heart is prominent. The thoracic ao rta demonstrate a minimal intimal calcification. No evidence for aneurysm/or dissection. No significa nt evidence for pulmonary embolus. No significant lymphadenopathy Bones demonstrate no evidence for significant compression deformity. Ribs demonstrate no significant fractures. Sternum is within normal limits. Abdomen: The liver, gallbladder, pancreas, spleen and adrenal glands demonstrate to be unremarkable, no focal lesions are noted. There is no evidence for solid organ injury. The kidneys demonstrate normal uptake of contrast media. No evidence for nephrolithiasis and/or hydro nephrosis. There is no extravasation of contrast. Bilateral renal cysts. Grossly the unopacified stom ach, visualized portions of the small bowel and large bowel demonstrate to be within normal limits. There is no evidence for bowel dilatation. The appendix is unremarkable. The aorta demonstrate min imal atheromatous plaque formation. There is no retroperitoneal lymphadenopathy. There is no eviden ce for retroperitoneal hemorrhage. Bones demonstrate mild scoliosis no compression deformities. Degenerative changes lower lumbar spine. IMPRESSION: Mild brain atrophy. No evidence for acute intracranial hemorrhage. No evidence for acute fracture or subluxation of the cervical spine. 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 No evidence for significant evidence for pulmonary embolus. Bilateral renal cysts. No evidence for acute intrathoracic and/or intra-abdominal process. Electronically signed by: Tio Zuleta MD 09/25/2021 3:21 AM TOWER OBSERVER Due to temporary technical issues with the PACS/Fluency reporting system, reports are being signed by the in house radiologists without review as a courtesy to insure prompt reporting. The interpreting radiologist is fully responsible for the content of the report.
== END 2021-09-25 05:00 | disposition home or self-care (01) ==
LOC: ER 00:54
DX: S30.1XXA Contusion of abdominal wall, initial encounter (principal); S20.229A Contusion of unspecified back wall of thorax, initial encounter; S20.219A Contusion of unspecified front wall of thorax, initial encounter; S60.042A Contusion of left ring finger without damage to nail, initial encounter; W01.10XA Fall on same level from slipping, tripping and stumbling with subsequent striking against unspecified object, initial encounter
CPT/HCPCS: 85025; 80048; 36415; 86900; 86850; 85610; 86901; 80076; 85730; 70450; 72125; 71260; 74177; 73130; 96375; 96374; 99284; Q9967; J2405

== ENCOUNTER → 2023-10-17 | Emergency (ER) | payer OTHER ==
--- NOTE | 2023-10-17 15:33 | RAD REPORT ---
EXAM DESCRIPTION: CT - Head Brain Wo Cont - 10/17/2023 3:23 pm CLINICAL HISTORY: TRAUMA Headache, drowsiness, head trauma, head injury COMPARISON: Head Brain Wo Cont dated 04/06/2021 TECHNIQUE: All CT scans are performed using dose optimization technique as appropriate and may inclu de automated exposure control or mA/KV adjustment according to patient size. FINDINGS: No intracranial hemorrhage, hydrocephalus or extra-axial fluid collection.Mild generalized brain atrophy is present with mild periventricular and deep white matter chronic microvascular ische sam changes.No areas of brain edema or evidence of midline shift. The paranasal sinuses and mastoids are clear. The calvarium is intact. IMPRESSION: No acute intracranial abnormality.
--- NOTE | 2023-10-17 15:50 | ER ---
Nurse's Notes [facility] Name: Tiffany Zambrano Age: 88 yrs Sex: Female : 1935 Arrival Date: 10/17/2023 Time: 14:40 Bed IW1 Private MD: Richar Pryor Diagnosis: Closed head injury, scalp hematoma Presentation: 10/16 15:08 Chief complaint: Patient states: Slid, fell, and hit the back of her head. No blood ll1 thinners. Coronavirus screen: Client denies travel out of the [place] in the last 14 days. At this time, the client does not indicate any symptoms associated with coronavirus-19. Ebola Screen: Patient denies travel to an Ebola-affected area in the 21 days before illness onset. Initial Sepsis Screen: Does the patient meet any 2 criteria? No. Patient's initial sepsis screen is negative. Does the patient have a suspected source of infection? No. Patient's initial sepsis screen is negative. Risk Assessment: Do you want to hurt yourself or someone else? Patient reports no desire to harm self or others. Onset of symptoms was October 17, 2023. 15:08 Method Of Arrival: Ambulatory ll1 15:08 Acuity: YESENIA 4 ll1 16:04 Care prior to arrival: None. Mechanism of Injury: Fall. Trauma event details: Injury ll1 occurred in the [facility]. Triage Assessment: 15:10 General: Appears uncomfortable, Behavior is calm, cooperative, appropriate for age. ll1 Pain: Denies pain. Neuro: Reports hit back of head. Trauma Activation: Not Applicable Physician: ED Physician; Name: ; Notified At: ; Arrived At: Physician: General Surgeon; Name: ; Notified At: ; Arrived At: Physician: Radiology; Name: ; Notified At: ; Arrived At: Physician: Respiratory; Name: ; Notified At: ; Arrived At: Physician: Lab; Name: ; Notified At: ; Arrived At: Historical: - Allergies: 14:59 No Known Drug Allergies; ll1 - PMHx: 14:59 Hypercholesterolemia; ll1 - Immunization history:: Adult Immunizations up to date. - Social history:: Smoking status: Patient denies any tobacco usage or history of. - Immunization history: Last tetanus immunization: - up to date. Screenin:03 [facility] ED Fall Risk Assessment (Adult) History of falling in the last 3 months, ll1 including since admission Yes- single mechanical fall (1 pt) Confusion or Disorientation No (0 pts) Intoxicated or Sedated No (0 pts) Impaired Gait Yes (1 pt) Mobility Assist Device Used Yes (1 pt) Altered Elimination No (0 pt) Score/Fall Risk Level 3 or more points = High Risk Maintained a safe environment. Abuse screen: Denies threats or abuse. Nutritional screening: No deficits noted. Tuberculosis screening: No symptoms or risk factors identified. Primary Survey: 16:04 NO uncontrolled hemorrhage observed. A: The client is awake and alert. The airway is ll1 patent. Breathing/Chest: Spontaneous respiratory effort, equal unlabored respirations, breath sounds clear bilaterally, regular pattern, symmetrical chest rise and fall. Circulation: No external hemorrhage present. Regular and strong central pulse, skin warm/dry/normal color. Disability Client is alert. Exposure/Environment: There is no evidence of uncontrolled external bleeding. 16:04 Reassessment Alertness and Airway: Awake and alert. The airway is patent. Breathing: ll1 Spontaneous respiratory effort, equal unlabored respirations, breath sounds clear bilaterally, regular pattern with symmetrical chest rise and fall. Circulation: No external hemorrhage noted. Regular and strong central pulse, skin warm/dry/normal color. Disability: Alert. Assessment: 16:03 Reassessment: No changes from previously documented assessment. Patient and/or family ll1 updated on plan of care and expected duration. Pain level reassessed. Patient is alert, oriented x 3, equal unlabored respirations, skin warm/dry/pink. Vital Signs: 15:08 BP 169 / 76; Pulse 68; Resp 17; Temp 97.3; Pulse Ox 98% ; Weight 74.84 kg; Height 5 ft. ll1 2 in. ; Pain 0/10; 16:03 BP 151 / 81; Pulse 68; Resp 17; Temp 97.9; Pulse Ox 98% ; Pain 0/10; ll1 15:08 Body Mass Index 30.18 (74.84 kg, 157.48 cm) ll1 15:08 Pain Scale: Adult ll1 16:03 Pain Scale: Adult ll1 Maribeth Coma Score: 16:04 Eye Response: spontaneous(4). Motor Response: obeys commands(6). Verbal Response: ll1 oriented(5). Total: 15. Trauma Score (Adult): 16:04 Eye Response: spontaneous(1); Verbal Response: oriented(1); Motor Response: obeys ll1 commands(2); Systolic BP: > 89 mm Hg(4); Respiratory Rate: 10 to 29 per min(4); Maribeth Score: 15; Trauma Score: 12 ED Course: 14:42 Patient arrived in ED. rg4 14:42 Richar Pryor DO is Private Physician. rg4 14:42 Kirstin Pryor MD is Attending Physician. sp3 14:59 Arm band placed on. ll1 15:10 Triage completed. ll1 15:25 CT Head Brain wo Cont In Process Unspecified. EDMS 15:49 Richar Pryor DO is Referral Physician. sp3 16:04 No provider procedures requiring assistance completed. Patient did not have IV access ll1 during this emergency room visit. 16:05 Patient has correct armband on for positive identification. Bed in low position. Call ll1 light in reach. Provided Education on: head injury precautions. 16:05 Patient maintains SpO2 saturation greater than 95% on room air. ll1 16:05 Thermoregulation: warm blanket given to patient. ll1 Administered Medications: No medications were administered Medication: 16:05 VIS not applicable for this client. ll1 Intake: 16:04 PO: 0ml; Total: 0ml. ll1 Output: 16:04 Urine: 0ml; Total: 0ml. ll1 Outcome: 15:49 Discharge ordered by MD. sp3 16:04 Discharged to home ambulatory, ll1 16:04 Condition: stable 16:04 Discharge instructions given to patient, family, Instructed on discharge instructions, follow up and referral plans. Demonstrated understanding of instructions, follow-up care, 16:05 Patient's length of stay was not longer than 2 hours. ll1 16:05 Patient left the ED. ll1 Signatures: Dispatcher [employer] EDMS Ryanne Denton rg4 Brennan Moncada RN RN ll1 Kirstin Pryor MD MD sp3 Corrections: (The following items were deleted from the chart) 15:11 15:08 Pulse 68bpm; Resp 17bpm; Pulse Ox 98%; Temp 97.3F; 74.84 kg; Height 5 ft. 2 in.; ll1 BMI: 30.1; Pain 0/10, Adult; ll1
--- NOTE | 2023-10-17 15:50 | EDPHYS ---
Physician Documentation [facility] Name: Tiffany Zambrano Age: 88 yrs Sex: Female : 1935 Arrival Date: 10/17/2023 Time: 14:40 Bed IW1 Private MD: Konstantin [facility] ED Physician Kirstin Pyror HPI: 10/16 15:22 This 88 yrs old Female presents to ER via Ambulatory with complaints of Fall sp3 Injury. 15:22 88-year-old female with history of hyperlipidemia and frequent falls now presents with sp3 mechanical slip and fall today approximate 1 hour prior to arrival witnessed by son with fall and hit to the posterior aspect of the head without loss of consciousness. Patient was dazed but was fully conscious the entire time. No significant bleeding noted. Patient denies any neck pain, back or shoulder pain, anterior chest pain, abdominal pain, extremity pain or any other areas that are hurting. Vision, speech, motor function, sensory function are all preserved. Patient has no other symptoms and review of systems otherwise negative.. Historical: - Allergies: 14:59 No Known Drug Allergies; ll1 - PMHx: 14:59 Hypercholesterolemia; ll1 - Immunization history:: Adult Immunizations up to date. - Social history:: Smoking status: Patient denies any tobacco usage or history of. - Immunization history: Last tetanus immunization: - up to date. ROS: 15:23 Constitutional: Negative for fever, chills, and weight loss, Eyes: Negative for injury, sp3 pain, redness, and discharge, ENT: Negative for injury, pain, and discharge, Neck: Negative for injury, pain, and swelling, Cardiovascular: Negative for chest pain, palpitations, and edema, Respiratory: Negative for shortness of breath, cough, wheezing, and pleuritic chest pain, Abdomen/GI: Negative for abdominal pain, nausea, vomiting, diarrhea, and constipation, Back: Negative for injury and pain, : Negative for injury, bleeding, discharge, and swelling, MS/Extremity: Negative for injury and deformity, Skin: Negative for injury, rash, and discoloration, Psych: Negative for depression, anxiety, suicide ideation, homicidal ideation, and hallucinations, Allergy/Immunology: Negative for hives, rash, and allergies, Endocrine: Negative for neck swelling, polydipsia, polyuria, polyphagia, and marked weight changes, Hematologic/Lymphatic: Negative for swollen nodes, abnormal bleeding, and unusual bruising, 15:23 All other systems are negative, Exam: 15:24 Constitutional: This is a well developed, well nourished patient who is awake, alert, sp3 and in no acute distress. Eyes: Pupils equal round and reactive to light, extra-ocular motions intact. Lids and lashes normal. Conjunctiva and sclera are non-icteric and not injected. Cornea within normal limits. Periorbital areas with no swelling, redness, or edema. ENT: Nares patent. No nasal discharge, no septal abnormalities noted. External auditory canals are clear. Oropharynx with no redness, swelling, or masses, exudates, or evidence of obstruction, uvula midline. Mucous membranes moist. Neck: Trachea midline, no thyromegaly or masses palpated, and no cervical lymphadenopathy. Supple, full range of motion without nuchal rigidity, or vertebral point tenderness. No Meningismus. Chest/axilla: Normal chest wall appearance and motion. Nontender with no deformity. No lesions are appreciated. Cardiovascular: Regular rate and rhythm with a normal S1 and S2. No gallops, murmurs, or rubs. Normal PMI, no JVD. No pulse deficits. Respiratory: Lungs have equal breath sounds bilaterally, clear to auscultation and percussion. No rales, rhonchi or wheezes noted. No increased work of breathing, no retractions or nasal flaring. Abdomen/GI: Soft, non-tender, with normal bowel sounds. No distension or tympany. No guarding or rebound. No evidence of tenderness throughout. Back: No spinal tenderness. No costovertebral tenderness. Full range of motion. Skin: Warm, dry with normal turgor. Normal color with no rashes, no lesions, and no evidence of cellulitis. MS/ Extremity: Pulses equal, no cyanosis. Neurovascular intact. Full, normal range of motion. Neuro: Awake and alert, GCS 15, oriented to person, place, time, and situation. Cranial nerves II-XII grossly intact. Motor strength 5/5 in all extremities. Sensory grossly intact. Cerebellar exam normal. Normal gait. Psych: Awake, alert, with orientation to person, place and time. Behavior, mood, and affect are within normal limits. 15:24 Head/face: Mild swelling posteriorly noted.. Vital Signs: 15:08 BP 169 / 76; Pulse 68; Resp 17; Temp 97.3; Pulse Ox 98% ; Weight 74.84 kg; Height 5 ft. ll1 2 in. ; Pain 0/10; 16:03 BP 151 / 81; Pulse 68; Resp 17; Temp 97.9; Pulse Ox 98% ; Pain 0/10; ll1 15:08 Body Mass Index 30.18 (74.84 kg, 157.48 cm) ll1 15:08 Pain Scale: Adult ll1 16:03 Pain Scale: Adult ll1 Maribeth Coma Score: 16:04 Eye Response: spontaneous(4). Motor Response: obeys commands(6). Verbal Response: ll1 oriented(5). Total: 15. Trauma Score (Adult): 16:04 Eye Response: spontaneous(1); Verbal Response: oriented(1); Motor Response: obeys ll1 commands(2); Systolic BP: > 89 mm Hg(4); Respiratory Rate: 10 to 29 per min(4); Maribeth Score: 15; Trauma Score: 12 MDM: 15:13 Patient medically screened. sp3 15:24 Data reviewed: vital signs, nurses notes, old medical records, radiologic studies. ED sp3 course: 88-year-old female with closed head injury. Differential diagnosis includes closed head injury, scalp hematoma, contusion, ICH, among others. Patient will require CT scan of the head to determine and if negative discharge home safely.. 15:49 ED course: CT scan of the head is negative. We will safely discharge patient home at 3 this time.. 10/16 15:13 Order name: CT Head Brain wo Cont; Complete Time: 15:49 sp3 Administered Medications: No medications were administered Disposition Summary: 10/17/23 15:49 Discharge Ordered Notes: Location: Home sp3 Condition: Stable sp3 Diagnosis - Closed head injury, scalp hematoma sp3 Followup: sp3 - With: Private Physician - When: Upon discharge from the Emergency Department - Reason: Continuance of care Discharge Instructions: - Discharge Summary Sheet sp3 - Head Injury, Adult sp3 - Fall Prevention in the Home, Adult sp3 Forms: - Medication Reconciliation Form sp3 - Thank You Letter sp3 - Antibiotic Education sp3 - Prescription Opioid Use sp3 - Patient Portal Instructions sp3 - Leadership Thank You Letter sp3 Signatures: Dispatcher [employer] EDMS Antwan, Lynsay, RN RN ll1 Kirstin Pryor MD MD sp3
[2023-10-17 16:23] VITALS: BP 151/81; TEMP 97.9; O2SAT 98
== END ==
LOC: ER 14:40
DX: S00.03XA Contusion of scalp, initial encounter (principal); W01.0XXA Fall on same level from slipping, tripping and stumbling without subsequent striking against object, initial encounter
CPT/HCPCS: 70450; 99284

== ENCOUNTER 2024-11-20 20:13 | Emergency (ER) | payer OTHER ==
--- NOTE | 2024-11-20 21:20 | RAD REPORT ---
EXAMINATION: ONE VIEW CHEST XR CLINICAL INDICATION: BLUNT CHEST TRAUMA TECHNIQUE: Frontal chest projection is submitted. Examination is limited by patient positioning and t echnique. COMPARISON: 04/06/2021 FINDINGS: The lungs are well inflated and clear. The heart is upper limit of normal in size. No displaced fract ures identified. IMPRESSION: No acute intrathoracic abnormalities.
--- NOTE | 2024-11-20 21:21 | RAD REPORT ---
EXAMINATION: XR LEFT ELBOW CLINICAL INDICATION: Female, 89 years old. left elbow pain TECHNIQUE: Multiple views of the left elbow were obtained. COMPARISON: No prior exam. FINDINGS: Diffuse osteopenia. Soft tissue swelling is seen involving the medial soft tissues of the elbow. No acute fracture or dislocation. Tiny calcaneal spur.
--- NOTE | 2024-11-20 21:22 | RAD REPORT ---
EXAMINATION: XR LEFT KNEE CLINICAL INDICATION: left knee pain TECHNIQUE: Multiple projections of the left knee were obtained. COMPARISON: No prior exam. FINDINGS: Diffuse osteopenia is seen. No fracture, dislocation or aggressive marrow pattern. Small j oint effusion.
--- NOTE | 2024-11-20 21:25 | RAD REPORT ---
EXAM: CT brain without contrast HISTORY: DIZZINESS COMPARISON: 10/17/2023 TECHNIQUE: Multiple contiguous axial images were obtained and a CT of the brain without contrast. Sag ittal and coronal reformats were performed. One or more of the following dose reduction techniques were used: Automated exposure control, adjust ment of the mA and/or kV according to patient size, and/or iterative reconstruction. FINDINGS: No evidence of hydrocephalus, intracranial hemorrhage, or extra-axial fluid collection. Mild brain atrophy with mild periventricular and deep white matter chronic microvascular ischemic ch anges present. No evidence of midline shift or areas of brain edema. The calvarium is intact. The visualized paranasal sinuses and mastoid air cells are essentially clear . IMPRESSION: No evidence of acute intracranial abnormality.
[2024-11-20 22:40] LABS: PT Prothrombin Time 11.3 SECONDS (10-13.0); Protime INR 0.99
[2024-11-20 22:41] LABS: Absolute Eosinophils 0.1 K/uL (0-0.5); Absolute Lymphocytes (CBC) 0.9 K/uL (0.7-4.9); Absolute Monocytes 0.6 K/uL (0.1-1.3); Absolute Neutrophil 7.4 K/uL (1.8-8.0); Basophils % 0.5 % (0-1.3); Eosinophils % 0.7 % (0-4.4); Hematocrit 37.4 % (36.0-45.0); Hemoglobin 12.9 g/dL (12.0-15.0); Lymphocytes % 10.5 % (15.3-44.8); MCHC 34.5 g/dL (32.0-36.0); MCV 92.7 fL (80-100); MPV 8.3 fL (7.6-11.3); Monocytes % 6.2 % (3.3-12.3); Neutrophils % 82.1 % (41.7-73.7); Platelets 230 thou/uL (152-406); RBC Red Blood Cell Count 4.03 M/uL (3.86-4.86); Red Cell Distribution Width 13.1 % (12.1-15.2)
[2024-11-20 22:54] LABS: AST/SGOT 13 U/L (15-37); Albumin 3.5 g/dL (3.4-5.0); Alkaline Phosphatase 151 U/L (45-117); Anion Gap 7.9 mEq/L (5.0-15.0); BUN Blood Urea Nitrogen 23 mg/dL (7-18); Bicarbonate 28 mEq/L (21-32); Bilirubin Total 0.4 mg/dL (0.2-1.0); Creatine Phosphokinase 100 U/L (26-192); Globulin 3.6 g/dL (2.3-3.5); Glomerular Filtration Rate 43 ml/min (=/>90); Glucose Level 121 mg/dL (74-106); Magnesium 2.2 mg/dL (1.6-2.4); NT PRO-BNP 894 pg/mL (<450); Potassium 3.9 mEq/L (3.5-5.1); Protein, Total 7.1 g/dL (6.4-8.2); Sodium Level 141 mEq/L (136-145); Troponin High Sensitivity 14.5 pg/mL (<58.9)
[2024-11-20 22:55] LABS: ALT/SGPT < 14 U/L (13-56); Bilirubin Direct < 0.2 mg/dL (0-0.2); Bilirubin Indirect, Calculated 0.2 mg/dL (0.2-0.8)
[2024-11-21 00:09] LABS: Renal Epithelial <5 /HPF (None Seen); Specific Gravity 1.024 (1.005-1.030); Sqamous Epithelial <5 /HPF (None Seen); Urine Bacteria None Seen /HPF (<20); Urine Bilirubin NEGATIVE (Negative); Urine Blood Negative (Negative); Urine Clarity Clear (Clear); Urine Color Yellow (Yellow); Urine Glucose NEGATIVE (Negative); Urine Ketones NEGATIVE (Negative); Urine Micro Reflex YN NO BILL MICROSCOPIC; Urine Mucus Slight /HPF (None Seen); Urine Nitrite NEGATIVE (Negative); Urine Protein TRACE (Negative); Urine RBC <5 /HPF (None Seen); Urine Urobilinogen 1+ (Normal)
--- NOTE | 2024-11-21 00:37 | EDPHYS ---
Physician Documentation [facility] Name: Tiffany Zambrano Age: 89 yrs Sex: Female : 1935 Arrival Date: 11/20/2024 Time: 20:13 Bed 3 Private MD: ED Physician Rd Silverio HPI: 11/21 00:36 This 89 yrs old Female presents to ER via EMS with complaints of Fall Injury. sp4 06:43 This 89-year-old female presents with EMS for acute fall at home. Complains of left sp4 elbow pain and left knee pain secondary to contusions. Patient's family state patient fell twice today and has been developing wobbly gait for some time. Patient has dementia and is unreliable historian.. Historical: - Allergies: 11/20 20:23 No Known Allergies; al5 - PMHx: 20:23 Hypercholesterolemia; Dementia; Hypertensive disorder; al5 - PSHx: 20:23 None; al5 - Immunization history: Last tetanus immunization: unknown. - Infectious Disease History:: Denies. - Social history:: Smoking status: Patient denies any tobacco usage or history of. - Family history:: not pertinent. ROS: 11/21 06:43 Constitutional: Negative for fever, chills, and weight loss, positive acute fall, sp4 positive left elbow pain, positive left knee pain, positive wobbly gait All other systems are negative, Exam: 06:43 Constitutional: This is a well developed, well nourished patient who is awake, alert, sp4 and in no acute distress. Head/Face: Normocephalic, atraumatic. Eyes: Pupils equal round and reactive to light, extra-ocular motions intact. Lids and lashes normal. Conjunctiva and sclera are not injected. Cornea within normal limits. Periorbital areas with no swelling, redness, or edema. ENT: Nares patent. No nasal discharge, no septal abnormalities noted. Tympanic membranes are normal and external auditory canals are clear. Oropharynx with no redness, swelling, or masses, exudates, or evidence of obstruction, uvula midline. Mucous membranes moist. Neck: Trachea midline, no thyromegaly or masses palpated, and no cervical lymphadenopathy. Supple, full range of motion without nuchal rigidity, or vertebral point tenderness. Chest/axilla: Normal chest wall appearance and motion. Nontender with no deformity. No lesions are appreciated. Cardiovascular: Regular rate and rhythm with a normal S1 and S2. No gallops, murmurs, or rubs. Normal PMI, no JVD. No pulse deficits. Respiratory: Lungs have equal breath sounds bilaterally, clear to auscultation and percussion. No rales, rhonchi or wheezes noted. No increased work of breathing, no retractions or nasal flaring. Abdomen/GI: Soft, with normal bowel sounds. No distension or tympany. No guarding or rebound. No evidence of tenderness throughout. Back: No spinal tenderness. No costovertebral tenderness. Skin: Warm, dry with normal turgor. Normal color with no rashes, no lesions, and no evidence of cellulitis. MS/ Extremity: Pulses equal, no cyanosis. Neurovascular intact. Full, normal range of motion. Neuro: Awake and alert, alert and oriented to self and others. cranial nerves II-XII grossly intact. Motor strength 5/5 in all extremities. Sensory grossly intact. Psych: Awake, alert, with orientation to person, exam reveals mild to moderate dementia. 06:51 ECG was reviewed by the Attending Physician. EKG 2057 normal sinus rhythm, rate 72, sp4 left axis deviation, right bundle branch block, LVH, muscle tremor artifact. No acute ischemic changes. Vital Signs: 11/20 20:19 BP 155 / 80; Pulse 77; Resp 16; Temp 98.2; Pulse Ox 98% on R/A; Weight 63.5 kg; Height al5 5 ft. 3 in. ; 20:30 BP 149 / 84; Pulse 72; Resp 18; Pulse Ox 98% ; al5 21:00 BP 149 / 81; Pulse 69; Resp 17; Pulse Ox 98% ; al5 21:30 BP 160 / 77; Pulse 68; Resp 16; Pulse Ox 99% ; al5 22:30 BP 189 / 79; Pulse 63; Resp 16; Pulse Ox 97% ; al5 23:00 BP 162 / 82; Pulse 62; Resp 16; Pulse Ox 96% ; al5 11/21 00:49 BP 158 / 76; Pulse 65; Resp 16; Pulse Ox 98% ; al5 11/20 20:19 Body Mass Index 24.80 (63.50 kg, 160.02 cm) al5 [place]ib[place] Coma Score: 04/30 20:19 Eye Response: spontaneous(4). Motor Response: obeys commands(6). Verbal Response: al5 oriented(5). Total: 15. 11/21 06:43 Eye Response: spontaneous(4). Motor Response: obeys commands(6). Verbal Response: sp4 oriented(5). Total: 15. Trauma Score (Adult): 11/20 20:19 Eye Response: spontaneous(1); Verbal Response: oriented(1); Motor Response: obeys al5 commands(2); Systolic BP: > 89 mm Hg(4); Respiratory Rate: 10 to 29 per min(4); Maribeth Score: 15; Trauma Score: 12 Procedures: 11/21 06:53 Splinting: Splint applied to left knee using Hinged knee brace applied to the left sp4 knee.. applied by myself. Examined by me, post splint application: neurovascular intact, 2+ distal pulses palpable, brisk capillary refill noted, Patient tolerated well. MDM: 11/20 20:20 Medical Screening Exam initiated sp4 20:57 ED course: Neurological exam reveals normal gait basically patient probably has sp4 worsening balance secondary to aging. Advised follow-up with neurologist next 2 to 3 weeks at this time stable for discharge home with recommendation on fall prevention.. 11/21 06:48 Differential diagnosis: abrasion, contusion, fracture, multiple trauma, sprain, strain. sp4 Data reviewed: vital signs, nurses notes, lab test result(s), EKG, radiologic studies, CT scan, plain films. 06:49 Consideration of Admission/Observation Escalation of care including sp4 admission/observation considered. ED course: EXAM: CT brain without contrast HISTORY: DIZZINESS COMPARISON: 10/17/2023 TECHNIQUE: Multiple contiguous axial images were obtained and a CT of the brain without contrast. Sagittal and coronal reformats were performed. One or more of the following dose reduction techniques were used: Automated exposure control, adjustment of the mA and/or kV according to patient size, and/or iterative reconstruction. FINDINGS: No evidence of hydrocephalus, intracranial hemorrhage, or extra-axial fluid collection. Mild brain atrophy with mild periventricular and deep white matter chronic microvascular ischemic changes present. No evidence of midline shift or areas of brain edema. The calvarium is intact. The visualized paranasal sinuses and mastoid air cells are essentially clear. IMPRESSION: No evidence of acute intracranial abnormality. ED course: EXAMINATION: XR LEFT ELBOW CLINICAL INDICATION: Female, 89 years old. left elbow pain TECHNIQUE: Multiple views of the left elbow were obtained. COMPARISON: No prior exam. FINDINGS: Diffuse osteopenia. Soft tissue swelling is seen involving the medial soft tissues of the elbow. No acute fracture or dislocation. Tiny calcaneal spur.. ED course: EXAMINATION: XR LEFT KNEE CLINICAL INDICATION: left knee pain TECHNIQUE: Multiple projections of the left knee were obtained. COMPARISON: No prior exam. FINDINGS: Diffuse osteopenia is seen. No fracture, dislocation or aggressive marrow pattern. Small joint effusion.. ED course: EXAMINATION: ONE VIEW CHEST XR CLINICAL INDICATION: BLUNT CHEST TRAUMA TECHNIQUE: Frontal chest projection is submitted. Examination is limited by patient positioning and technique. COMPARISON: 04/06/2021 FINDINGS: The lungs are well inflated and clear. The heart is upper limit of normal in size. No displaced fractures identified. IMPRESSION: No acute intrathoracic abnormalities.. 11/20 20:19 Order name: Basic Metabolic Panel; Complete Time: 22:57 sp4 11/20 20:19 Order name: CBC with Diff; Complete Time: 22:57 sp4 11/20 20:19 Order name: LFT's; Complete Time: 22:57 sp4 11/20 20:19 Order name: Magnesium; Complete Time: 22:57 sp4 11/20 20:19 Order name: NT PRO-BNP; Complete Time: 22:57 sp4 11/20 20:19 Order name: PT-INR; Complete Time: 22:57 sp4 11/20 20:19 Order name: Troponin HS; Complete Time: 22:57 sp4 11/20 20:19 Order name: Urinalysis W/Microscopic; Complete Time: 00:32 sp4 11/20 20:19 Order name: TSH; Complete Time: 22:57 sp4 11/20 20:19 Order name: T4 Free; Complete Time: 22:57 sp4 11/20 20:19 Order name: CK; Complete Time: 22:57 sp4 11/20 20:19 Order name: XRAY Chest (1 view); Complete Time: 22:17 sp4 11/20 20:19 Order name: CT Head Brain wo Cont; Complete Time: 22:17 sp4 11/20 20:19 Order name: Elbow Left 3 View XRAY; Complete Time: 22:17 sp4 11/20 20:20 Order name: Knee Left 3 View XRAY; Complete Time: 22:17 sp4 11/20 20:19 Order name: Cardiac monitoring; Complete Time: 21:16 sp4 11/20 20:19 Order name: EKG - Nurse/Tech; Complete Time: 21:16 sp4 11/20 20:19 Order name: IV Saline Lock; Complete Time: 22:19 sp4 11/20 20:19 Order name: Labs collected and sent; Complete Time: 22:19 sp4 11/20 20:19 Order name: O2 Per Protocol; Complete Time: 21:16 sp4 11/20 20:19 Order name: O2 Sat Monitoring; Complete Time: :16 sp4 EC/30 20:57 Rate is 72 beats/min. Rhythm is regular, Normal Sinus Rhythm. Left axis deviation sp4 noted. [place] interval is normal. QRS interval is prolonged. QT interval is normal. No Q waves. No ST changes noted. Clinical impression: No evidence of ischemia. Interpreted by me. Reviewed by me. Administered Medications: 11/21 00:49 Drug: Cephalexin PO 500 mg PO once Route: PO; al5 00:49 Follow up: Response: No adverse reaction al5 Disposition Summary: 11/21/24 00:36 Discharge Ordered Problem: new sp4 Symptoms: have improved sp4 Condition: Stable sp4 Diagnosis - Acute urinary tract infection, balance disorder, acute fall at home, left elbow sp4 contusion Followup: sp4 - With: Private Physician - When: 7 - 10 days - Reason: Recheck today's complaints Discharge Instructions: - Discharge Summary Sheet sp4 - Fall Prevention in Hospitals, Adult sp4 Forms: - Patient Portal Instructions sp4 Prescriptions: - Cephalexin 500 mg Oral Capsule - take 1 capsule ORAL route every 12 hours for 10 days; 20 capsule; Refills: 0, sp4 Product Selection Permitted Signatures: Dispatcher [employer] Rd Barrera MD MD sp4 Traci Aguilera RN RN al5 Corrections: (The following items were deleted from the chart) 11/20 20:19 20:19 BASIC METABOLIC PANEL+C.LAB.BRZ ordered. EDMS EDMS 20:19 20:19 CBC+H.LAB.BRZ ordered. EDMS EDMS 20:19 20:19 HEPATIC FUNCTION+C.LAB.BRZ ordered. EDMS EDMS 20:19 20:19 MAGNESIUM+C.LAB.BRZ ordered. EDMS EDMS 20:19 20:19 PROBNP+C.LAB.BRZ ordered. EDMS EDMS 20:19 20:19 PROTIME (+INR)+COAG.LAB.BRZ ordered. EDMS EDMS 20:19 20:19 Troponin High Sensitivity+C.LAB.BRZ ordered. EDMS EDMS 20:19 20:19 Chest Single View+RAD.RAD.BRZ ordered. EDMS EDMS 20:19 20:19 Head Brain Wo Cont+CT.RAD.BRZ ordered. EDMS EDMS 20:20 20:20 Urinalysis W/Microscopic+U.LAB.BRZ ordered. EDMS EDMS 20:20 20:20 THYROID STIMULAT HORMONE+C.LAB.BRZ ordered. EDMS EDMS 20:20 20:20 T4 FREE+C.LAB.BRZ ordered. EDMS EDMS 20:20 20:20 CREATINE PHOSPHOKINASE+C.LAB.BRZ ordered. EDMS EDMS
--- NOTE | 2024-11-21 00:37 | ER ---
Nurse's Notes [facility] Name: Tiffany Zambrano Age: 89 yrs Sex: Female : 1935 Arrival Date: 11/20/2024 Time: 20:13 Bed 3 Private MD: Diagnosis: Acute urinary tract infection, balance disorder, acute fall at home, left elbow contusion Presentation: 11/20 20:16 Chief complaint: EMS states: fall, head strike, c/o L knee and elbow pain with al5 abrasions. pain with movement. denies head pain, neck pain, blood thinners, and LOC. patient denies being dizzy prior to fall. daughter states this is her second fall today. 20:16 Acuity: YESENIA 3 al5 20:16 Method Of Arrival: EMS: [facility] al5 20:16 Care prior to arrival: None. Mechanism of Injury: Fall from standing position. Trauma al5 event details: Injury occurred in the [facility], Injury occurred: at home. Injury occurred: November 20, 2024. 20:26 Coronavirus screen: At this time, the client does not indicate any symptoms associated al5 with coronavirus-19. Ebola Screen: No symptoms or risks identified at this time. Initial Sepsis Screen: Does the patient meet any 2 criteria? No. Patient's initial sepsis screen is negative. Does the patient have a suspected source of infection? No. Patient's initial sepsis screen is negative. Risk Assessment: Do you want to hurt yourself or someone else? Patient reports no desire to harm self or others. Onset of symptoms was November 20, 2024. Triage Assessment: 20:22 General: see triage assessment. al5 Trauma Activation: Physician: ED Physician; Name: ; Notified At: ; Arrived At: Physician: General Surgeon; Name: ; Notified At: ; Arrived At: Physician: Radiology; Name: ; Notified At: ; Arrived At: Physician: Respiratory; Name: ; Notified At: ; Arrived At: Physician: Lab; Name: ; Notified At: ; Arrived At: 20:16 n/a al5 Historical: - Allergies: 20:23 No Known Allergies; al5 - PMHx: 20:23 Hypercholesterolemia; Dementia; Hypertensive disorder; al5 - PSHx: 20:23 None; al5 - Immunization history: Last tetanus immunization: unknown. - Infectious Disease History:: Denies. - Social history:: Smoking status: Patient denies any tobacco usage or history of. - Family history:: not pertinent. Screenin:20 Abuse screen: Denies threats or abuse. Denies injuries from another. Nutritional al5 screening: No deficits noted. Tuberculosis screening: No symptoms or risk factors identified. 20:25 [facility] ED Fall Risk Assessment (Adult) History of falling in the last 3 months, al5 including since admission Yes- single mechanical fall (1 pt) Confusion or Disorientation No (0 pts) Intoxicated or Sedated No (0 pts) Impaired Gait Yes (1 pt) Mobility Assist Device Used No (0 pt) Altered Elimination No (0 pt) Score/Fall Risk Level 0 - 2 = Low Risk Oriented to surroundings, Maintained a safe environment, Hourly rounding (assess needs \T\ fall precautionary measures) done. Primary Survey: 20:17 NO uncontrolled hemorrhage observed. A: The client is alert. No supplemental oxygen in al5 use on arrival. Breathing/Chest: Respiratory effort: spontaneous, unlabored, Respiratory pattern: regular. Circulation: Skin color: pink, Skin temperature: warm, dry. Disability Pupils are equal, round, reactive to light and accommodation. Client is alert. Exposure/Environment: Obvious injury(ies) are noted at this time: pain and abrasion to L elbow and knee. 11/21 00:50 Reassessment Alertness and Airway: Awake and alert. The airway is patent. Breathing: al5 Spontaneous respiratory effort, equal unlabored respirations, breath sounds clear bilaterally, regular pattern with symmetrical chest rise and fall. Circulation: No external hemorrhage noted. Regular and strong central pulse, skin warm/dry/normal color. Disability: Pupils Pupils are equal, round, reactive to light and accomodation. Alert. Secondary Survey: 11/20 20:17 HEENT: Head No injury/deformity. Gastrointestinal: No deficits noted. : No deficits al5 noted. Musculoskeletal: pain and abrasion to L elbow and knee, no bleeding. Assessment: 20:16 General: Appears in no apparent distress. comfortable, Behavior is calm, cooperative. al5 Pain: Complains of pain in left elbow and left knee. 20:16 Neuro: Level of Consciousness is awake, alert, obeys commands, Oriented to person, al5 place, time, situation. EENT: No signs and/or symptoms were reported regarding the EENT system. Cardiovascular: Capillary refill < 3 seconds Patient's skin is warm and dry. Respiratory: Airway is patent Respiratory effort is even, unlabored, Respiratory pattern is regular, symmetrical. GI: No signs and/or symptoms were reported involving the gastrointestinal system. : No signs and/or symptoms were reported regarding the genitourinary system. Derm: Skin is intact, is healthy with good turgor, Skin is pink, warm \T\ dry. normal, abrasion to L elbow and knee. Musculoskeletal: Reports pain in left elbow and left knee. 22:28 Reassessment: Patient appears in no apparent distress at this time. No changes from al5 previously documented assessment. Patient and/or family updated on plan of care and expected duration. Pain level reassessed. Patient is alert, oriented x 3, equal unlabored respirations, skin warm/dry/pink. 11/21 00:49 Reassessment: Patient appears in no apparent distress at this time. Patient and/or al5 family updated on plan of care and expected duration. Pain level reassessed. Patient is alert, oriented x 3, equal unlabored respirations, skin warm/dry/pink. Patient states feeling better. Patient states symptoms have improved. Vital Signs: 11/20 20:19 BP 155 / 80; Pulse 77; Resp 16; Temp 98.2; Pulse Ox 98% on R/A; Weight 63.5 kg; Height al5 5 ft. 3 in. ; 20:30 BP 149 / 84; Pulse 72; Resp 18; Pulse Ox 98% ; al5 21:00 BP 149 / 81; Pulse 69; Resp 17; Pulse Ox 98% ; al5 21:30 BP 160 / 77; Pulse 68; Resp 16; Pulse Ox 99% ; al5 22:30 BP 189 / 79; Pulse 63; Resp 16; Pulse Ox 97% ; al5 23:00 BP 162 / 82; Pulse 62; Resp 16; Pulse Ox 96% ; al5 11/21 00:49 BP 158 / 76; Pulse 65; Resp 16; Pulse Ox 98% ; al5 11/20 20:19 Body Mass Index 24.80 (63.50 kg, 160.02 cm) al5 [place] Coma Score: 11/20 20:19 Eye Response: spontaneous(4). Motor Response: obeys commands(6). Verbal Response: al5 oriented(5). Total: 15. 11/21 06:43 Eye Response: spontaneous(4). Motor Response: obeys commands(6). Verbal Response: sp4 oriented(5). Total: 15. Trauma Score (Adult): 11/20 20:19 Eye Response: spontaneous(1); Verbal Response: oriented(1); Motor Response: obeys al5 commands(2); Systolic BP: > 89 mm Hg(4); Respiratory Rate: 10 to 29 per min(4); [place] Score: 15; Trauma Score: 12 ED Course: 20:16 Patient arrived in ED. al5 20:18 Rd Silverio MD is Attending Physician. sp4 20:20 Patient has correct armband on for positive identification. Bed in low position. Call al5 light in reach. Side rails up X2. Patient maintains SpO2 saturation greater than 95% on room air. 20:21 No provider procedures requiring assistance completed. Patient maintains SpO2 al5 saturation greater than 95% on room air. 20:22 Arm band placed on right wrist. Patient placed in the treatment room, in view of staff al5 members, on mechanic insulator, on pulse oximetry. 20:32 Triage completed. al5 20:40 Provided Education on: plan of care. al5 21:13 XRAY Chest (1 view) In Process Unspecified. EDMS 21:13 Elbow Left 3 View XRAY In Process Unspecified. EDMS 21:13 Knee Left 3 View XRAY In Process Unspecified. EDMS 21:19 Traci Aguilera, RN is Primary Nurse. al5 21:23 CT Head Brain wo Cont In Process Unspecified. EDMS 21:40 Inserted saline lock: 22 gauge in left forearm, using aseptic technique. al5 11/21 00:50 IV discontinued, intact, bleeding controlled, No redness/swelling at site. Pressure al5 dressing applied. 00:51 Thermoregulation: warm blanket given to patient. al5 Administered Medications: 00:49 Drug: Cephalexin PO 500 mg PO once Route: PO; al5 00:49 Follow up: Response: No adverse reaction al5 Medication: 11/20 20:24 VIS not applicable for this client. al5 Intake: 20:19 n/a al5 Outcome: 11/21 00:36 Discharge ordered by . sp4 00:49 Discharged to home via wheelchair, with family, al5 00:49 Condition: good 00:49 Discharge instructions given to patient, family, Instructed on discharge instructions, follow up and referral plans. medication usage, Demonstrated understanding of instructions, follow-up care, medications, Prescriptions given X 1, 00:49 Patient's length of stay in the Emergency Department was greater than 2 hours. 00:51 Patient left the ED. al5 Signatures: Dispatcher [employer] EDRd Clinton MD MD sp4 Traci Aguilera RN RN al5
[2024-11-21] MEDS ORDERED: CEPHALEXIN 250 MG CAP ONE (00:41)
[2024-11-21 01:49] VITALS: TEMP 98.2
[2024-11-21 02:20] VITALS: BP 158/76; O2SAT 98
--- NOTE | 2024-11-21 11:54 | EKG ---
Test Date: 2024-11-20 Test Time: 20:57:03 Glass Installer: FELIX MEASUREMENT RESULTS: Intervals: Rate: 72 LA: 154 QRSD: 132 QT: 446 QTc: 488 [place]: P: 49 LA: 154 QRS: -48 T: 22 INTERPRETIVE STATEMENTS: Normal sinus rhythm Left axis deviation Right bundle branch block Moderate voltage criteria for LVH, may be normal variant Cannot rule out Septal infarct, age undetermined Abnormal ECG Compared to ECG 04/06/2021 14:55:22 Left-axis deviation now present Myocardial infarct finding now present Sinus bradycardia no longer present Left anterior fascicular block no longer present Bifascicular block no longer present T-wave abnormality no longer present Possible ischemia no longer present Electronically Signed On 11-21-24 11:52:06 CDT by Matthew Edwards
== END 2024-11-21 00:51 | disposition home or self-care (01) ==
LOC: ER 20:13
DX: S50.02XA Contusion of left elbow, initial encounter (principal); N39.0 Urinary tract infection, site not specified; R26.89 Other abnormalities of gait and mobility; W18.30XA Fall on same level, unspecified, initial encounter; Y92.009 Unspecified place in unspecified non-institutional (private) residence as the place of occurrence of the external cause; F03.90 Unspecified dementia, unspecified severity, without behavioral disturbance, psychotic disturbance, mood disturbance, and anxiety; I10 Essential (primary) hypertension
CPT/HCPCS: 36415; 70450; 71045; 80048; 80076; 81001; 82550; 83735; 83880; 84439; 84443; 84484; 85025; 85610; 93005; 99284